=== PATIENT | female | born 1975 | race Two or more races ===

== ENCOUNTER 2020-02-06 08:48 | Outpatient (REF) | payer OTHER, SELFPAY ==
[2020-02-06 11:51] LABS: MANUAL DIFF FLAG NO
[2020-02-06 11:59] LABS: Basophils Percent Auto 0.4 % (0-2); Eosinophils Absolute Auto 0.1 X10*3/uL (0.0-0.4); Eosinophils Percent Auto 2.7 % (0-4); Hematocrit 39.3 % (37-47); Hemoglobin 12.2 g/dl (12.0-16.0); Imm Gran Abs Auto 0.01 X10*3/uL (0.00-0.03); Imm Gran Pct Auto 0.2 % (0.0-0.4); Lymphocytes Absolute Auto 1.2 X10*3/uL (1.2-4.9); Lymphocytes Percent Auto 22.7 % (20-40); Mean Corpuscular Hemoglobin 27.6 pg (27.0-33.0); Mean Corpuscular Volume 88.9 fL (80-98); Mean Platelet Volume 11.1 fL (9.4-12.3); Monocytes Absolute Auto 0.4 X10*3/uL (0.1-1.2); Monocytes Percent Auto 8.5 % (2-11); Neutrophils Absolute Auto 3.4 X10*3/uL (2.0-8.3); Neutrophils Percent Auto 65.5 % (45-73); Platelet Count 409 X10*3/uL (160-400); Red Blood Count 4.42 X10*6/uL (4.20-5.50); Red Cell Distribution Width 12.4 % (11.0-16.0); White Blood Count 5.2 X10*3/uL (4.8-10.8)
[2020-02-06 12:24] LABS: Anion Gap 10 (12-20); Blood Urea Nitrogen 13 mg/dL (9-16); Calcium 8.5 mg/dL (8.4-10.2); Carbon Dioxide 28 mmol/L (22-29); Chloride 105 mmol/L (96-108); Cholesterol 156 mg/dL; Estimated Glomerular Filt Rate > 60; Glucose Fasting 93 mg/dL (60-99); HDL Cholesterol 51 mg/dL; LDL Cholesterol Calculated 93 mg/dl; Potassium 4.4 mmol/l (3.3-5.1); Sodium 139 mmol/L (135-145); Triglycerides 61 mg/dL
[2020-02-06 12:48] LABS: TSH reflex Free T4 1.06 mIU/mL (0.32-4.0)
[2020-02-06 13:02] LABS: Vitamin B12 > 2000 pg/mL (200-900)
[2020-02-11 13:38] LABS: Vitamin D 25-OH, D2 <4 ng/mL; Vitamin D 25-OH, D3 40 ng/mL; Vitamin D 25-OH, Total 40 ng/mL (30-100)
== END 2020-02-06 08:49 | disposition home or self-care (01) ==
LOC: HO.HMGCLDS 08:48
PROVIDERS: PCP Internal Medicine; Visit Provider Internal Medicine
DX: Z00.01 Encounter for general adult medical examination with abnormal findings (principal); E53.8 Deficiency of other specified B group vitamins; E61.1 Iron deficiency; E55.9 Vitamin D deficiency, unspecified; E66.9 Obesity, unspecified
CPT/HCPCS: 36415; 80048; 80061; 82306; 82607; 84443; 85025

== ENCOUNTER 2020-10-02 09:16 | Outpatient (REF) | payer OTHER, SELFPAY ==
[2020-10-02 11:27] LABS: Anion Gap 9 (12-20); Carbon Dioxide 28 mmol/L (22-29); Chloride 106 mmol/L (96-108); Potassium 4.2 mmol/L (3.3-5.1); Sodium 139 mmol/L (135-145)
[2020-10-03 17:27] LABS: Rubella IgG Antibody 2.43 Index
[2020-10-04 21:02] LABS: TS Negative Control Passed; TS Panel A 0; TS Panel B 0; TS Positive Control Passed; TSpotTB Negative (SeeBelow)
[2020-10-05 13:47] LABS: Tetanus Antitoxiod Antibody 4.04 IU/mL
== END 2020-10-02 09:17 | disposition home or self-care (01) ==
LOC: HO.HMGCLDS 09:16
PROVIDERS: PCP Internal Medicine; Visit Provider Internal Medicine
DX: Z00.01 Encounter for general adult medical examination with abnormal findings (principal); Z11.1 Encounter for screening for respiratory tuberculosis; E53.8 Deficiency of other specified B group vitamins; E55.9 Vitamin D deficiency, unspecified; E61.1 Iron deficiency; E66.9 Obesity, unspecified; Z28.3 Underimmunization status
CPT/HCPCS: 36415; 80051; 86481; 86735; 86762; 86765; 86774; 86787

== ENCOUNTER 2021-02-14 07:44 | Outpatient (REF) | payer OTHER, SELFPAY ==
[2021-02-14 11:43] LABS: MANUAL DIFF FLAG NO
[2021-02-14 11:50] LABS: Basophils Percent Auto 0.3 % (0-2); Eosinophils Absolute Auto 0.2 X10*3/uL (0.0-0.4); Eosinophils Percent Auto 2.7 % (0-4); Hemoglobin 12.6 g/dl (12.0-16.0); Imm Gran Abs Auto 0.01 X10*3/uL (0.00-0.03); Imm Gran Pct Auto 0.2 % (0.0-0.4); Lymphocytes Absolute Auto 1.2 X10*3/uL (1.2-4.9); Lymphocytes Percent Auto 19.8 % (20-40); Mean Corpuscular HGB Conc 31.5 g/dl (31.0-35.0); Mean Corpuscular Volume 88.9 fL (80.0-98.0); Monocytes Absolute Auto 0.3 X10*3/uL (0.1-1.2); Monocytes Percent Auto 4.9 % (2-11); Neutrophils Absolute Auto 4.3 x10*3/uL (2.0-8.3); Neutrophils Percent Auto 72.1 % (45-73); Platelet Count 412 X10*3/uL (160-400); Red Cell Distribution Width 12.4 % (11.0-16.0); White Blood Count 5.9 X10*3/uL (4.8-10.8)
[2021-02-14 12:12] LABS: Alanine Aminotransferase < 6 U/L (0-31); Albumin Level 3.7 g/dL (3.5-5.0); Alkaline Phosphatase 53 U/L (39-117); Anion Gap 14 (12-20); Aspartate Amino Transferase 14 U/L (5-31); Bilirubin Total 0.5 mg/dL (0.0-1.0); Blood Urea Nitrogen 13 mg/dL (9-16); Carbon Dioxide 26 mmol/L (22-29); Chloride 106 mmol/L (96-108); Cholesterol 148 mg/dL; Estimated Glomerular Filt Rate > 60; Glucose Fasting 89 mg/dL (60-99); HDL Cholesterol 49 mg/dL; LDL Cholesterol Calculated 89 mg/dl; Potassium 4.7 mmol/L (3.3-5.1); Sodium 141 mmol/L (135-145); Total Protein 6.8 g/dL (6.5-8.0); Triglycerides 52 mg/dL
[2021-02-14 12:34] LABS: Ferritin 31 ng/mL (10-250); TSH reflex Free T4 0.95 uIU/mL (0.32-4.0)
[2021-02-14 13:01] LABS: Vitamin B12 680 pg/mL (200-900)
[2021-02-18 13:21] LABS: Vitamin D 25-OH, D2 <4 ng/mL; Vitamin D 25-OH, D3 24 ng/mL; Vitamin D 25-OH, Total 24 ng/mL (30-100)
== END 2021-02-14 07:45 | disposition home or self-care (01) ==
LOC: HO.HMGCLDS 07:44
PROVIDERS: PCP Internal Medicine; Visit Provider Internal Medicine
DX: Z00.01 Encounter for general adult medical examination with abnormal findings (principal); E53.8 Deficiency of other specified B group vitamins; E55.9 Vitamin D deficiency, unspecified; E61.1 Iron deficiency; E66.01 Morbid (severe) obesity due to excess calories
CPT/HCPCS: 36415; 80053; 80061; 82306; 82607; 82728; 84443; 85025

== ENCOUNTER 2021-03-28 14:38 | Outpatient (REF) | payer MEDICAID, SELFPAY ==
[2021-03-29 03:00] LABS: CT PCR NOT DETECTED (Not Detect.); NG PCR NOT DETECTED (Not Detect.)
[2021-03-29 09:48] LABS: BV Int Neg Control Negative (Negative); BV Int Pos Control Positive (Positive)
[2021-04-03 05:51] LABS: HPV mRNA E6/E7 rflx Not Detected (Not Detected)
== END 2021-03-28 14:39 | disposition home or self-care (01) ==
LOC: HO.LAB 14:38
PROVIDERS: PCP Internal Medicine; Visit Provider Advanced Practice Midwife
DX: Z01.419 Encounter for gynecological examination (general) (routine) without abnormal findings (principal); Z11.3 Encounter for screening for infections with a predominantly sexual mode of transmission; Z11.8 Encounter for screening for other infectious and parasitic diseases; Z11.51 Encounter for screening for human papillomavirus (HPV); E53.8 Deficiency of other specified B group vitamins; E55.9 Vitamin D deficiency, unspecified; D50.9 Iron deficiency anemia, unspecified; E66.01 Morbid (severe) obesity due to excess calories; Z68.41 Body mass index [BMI] 40.0-44.9, adult; Z91.040 Latex allergy status; Z98.51 Tubal ligation status; Z98.84 Bariatric surgery status; Z79.899 Other long term (current) drug therapy
CPT/HCPCS: 87480; 87491; 87510; 87591; 87624; 87660; 88142

== ENCOUNTER 2021-09-18 08:07 | Outpatient (REF) | payer OTHER, SELFPAY ==
--- NOTE | 2021-09-18 08:10 | EMG_ITS ---
Bilateral median and ulnar motor and sensory studies were performed. Bilateral radial and sensory studies were performed. Bilateral median and lateral antecubital brachial studies were performed and paraspinal muscles were tested with a needle. IMPRESSION: This study did not reveal any significant abnormality to suggest median or ulnar neuropathy, plexopathy, or radiculopathy. Study was unremarkable. MD DAVID Espinosa/IAN / [id number]
== END 2021-09-18 08:08 | disposition home or self-care (01) ==
LOC: HO.NEURO 08:07
PROVIDERS: Visit Provider Internal Medicine
DX: R20.2 Paresthesia of skin (principal)
CPT/HCPCS: 95886; 95913

== ENCOUNTER 2022-01-21 09:03 | Outpatient (REF) | payer OTHER, SELFPAY ==
[2022-01-22 10:13] LABS: BV Int Neg Control Negative (Negative); BV Int Pos Control Positive (Positive)
== END 2022-01-21 09:04 | disposition home or self-care (01) ==
LOC: HO.LAB 09:03
PROVIDERS: Visit Provider Internal Medicine
DX: N76.0 Acute vaginitis (principal); R30.0 Dysuria
CPT/HCPCS: 87086; 87480; 87510; 87660

== ENCOUNTER 2022-01-21 09:08 | Outpatient (REF) | payer OTHER, SELFPAY ==
[2022-01-21 11:11] LABS: MANUAL DIFF FLAG NO
[2022-01-21 11:37] LABS: Basophils Percent Auto 0.3 % (0-2); Eosinophils Absolute Auto 0.1 X10*3/uL (0.0-0.4); Eosinophils Percent Auto 1.6 % (0-4); Hemoglobin 12.1 g/dl (12.0-16.0); Imm Gran Abs Auto 0.01 X10*3/uL (0.00-0.03); Imm Gran Pct Auto 0.2 % (0.0-0.4); Lymphocytes Percent Auto 17.7 % (20-40); Mean Corpuscular Hemoglobin 26.3 pg (27.0-33.0); Mean Corpuscular Volume 84.8 fL (80.0-98.0); Mean Platelet Volume 11.3 fL (9.4-12.3); Monocytes Absolute Auto 0.4 X10*3/uL (0.1-1.2); Monocytes Percent Auto 7.6 % (2-11); Neutrophils Absolute Auto 4.2 x10*3/uL (2.0-8.3); Neutrophils Percent Auto 72.6 % (45-73); Platelet Count 420 X10*3/uL (160-400); Red Cell Distribution Width 12.7 % (11.0-16.0); White Blood Count 5.8 X10*3/uL (4.8-10.8)
[2022-01-21 11:51] LABS: Estimated Average Glucose 120 mg/dL; Hemoglobin A1c % 5.8 %
[2022-01-21 12:01] LABS: Alanine Aminotransferase 6 U/L (0-31); Albumin Level 3.8 g/dL (3.5-5.0); Alkaline Phosphatase 60 U/L (39-117); Anion Gap 11 (12-20); Aspartate Amino Transferase 15 U/L (5-31); Bilirubin Total 0.4 mg/dL (0.0-1.0); Blood Urea Nitrogen 10 mg/dL (9-16); Carbon Dioxide 26 mmol/L (22-29); Chloride 105 mmol/L (96-108); Cholesterol 164 mg/dL; Estimated Glomerular Filt Rate > 60; Glucose Fasting 102 mg/dL (60-99); HDL Cholesterol 54 mg/dL; LDL Cholesterol Calculated 97 mg/dl; Potassium 4.4 mmol/L (3.3-5.1); Sodium 138 mmol/L (135-145); Triglycerides 65 mg/dL
== END 2022-01-21 09:09 | disposition home or self-care (01) ==
LOC: HO.HMGCLDS 09:08
PROVIDERS: PCP Internal Medicine; Visit Provider Internal Medicine
DX: E53.8 Deficiency of other specified B group vitamins (principal); E55.9 Vitamin D deficiency, unspecified; E61.1 Iron deficiency; E66.01 Morbid (severe) obesity due to excess calories; R20.2 Paresthesia of skin; R63.1 Polydipsia
CPT/HCPCS: 36415; 80053; 80061; 83036; 84443; 85025

== ENCOUNTER 2022-02-06 09:45 | Outpatient (REF) | payer OTHER, SELFPAY ==
[2022-02-08 19:03] LABS: TS Negative Control Passed; TS Panel A 0; TS Panel B 0; TS Positive Control Passed; TSpotTB Negative (Negative)
== END 2022-02-06 09:46 | disposition home or self-care (01) ==
LOC: HO.HMGCLDS 09:45
PROVIDERS: PCP Internal Medicine; Visit Provider Internal Medicine
DX: Z11.1 Encounter for screening for respiratory tuberculosis (principal)
CPT/HCPCS: 36415; 86481

== ENCOUNTER 2022-04-03 14:42 | Outpatient (REF) | payer OTHER, SELFPAY ==
--- NOTE | ~2022-04-03 | XR_ITS ---
EXAMINATION: XR LUMBOSACRAL SPINE CLINICAL INFORMATION: Lower back pain COMPARISON: 09/23/2018 TECHNIQUE: Three views of the lumbosacral spine. FINDINGS: No fracture or subluxation. Vertebral body height and alignment maintained. Mild disc space narrowing of L4-L5. Mild facet arthropathy at the lower lumbar spine. The appearance has progressed from 2019. The sacroiliac joints are symmetric. The visualized sacrum is intact. Normal bowel gas pattern. XR/XR lumbar spine 2-3V IMPRESSION: Mild degenerative changes of the lower lumbar spine which have progressed from 2019.
== END 2022-04-03 14:43 | disposition home or self-care (01) ==
LOC: HO.HMGCX 14:42
PROVIDERS: Visit Provider Internal Medicine
DX: M54.50 Low back pain, unspecified (principal)
CPT/HCPCS: 72100

== ENCOUNTER 2022-04-30 11:31 | Outpatient (REF) | payer OTHER, SELFPAY ==
[2022-04-30 16:57] LABS: CT PCR NOT DETECTED (Not Detect.); NG PCR NOT DETECTED (Not Detect.)
[2022-05-01 11:11] LABS: BV Int Neg Control Negative (Negative); BV Int Pos Control Positive (Positive)
== END 2022-04-30 11:32 | disposition home or self-care (01) ==
LOC: HO.LAB 11:31
PROVIDERS: PCP Internal Medicine; Visit Provider Advanced Practice Midwife
DX: Z11.3 Encounter for screening for infections with a predominantly sexual mode of transmission (principal); N89.8 Other specified noninflammatory disorders of vagina; E66.01 Morbid (severe) obesity due to excess calories; Z20.2 Contact with and (suspected) exposure to infections with a predominantly sexual mode of transmission; N94.9 Unspecified condition associated with female genital organs and menstrual cycle
CPT/HCPCS: 0353U; 87480; 87510; 87660

== ENCOUNTER 2022-04-30 12:25 | Outpatient (REF) | payer OTHER, SELFPAY | END 2022-04-30 12:26 | disposition home or self-care (01) | LOC: HO.LNP 12:25 | PROVIDERS: Visit Provider Advanced Practice Midwife | DX: Z13.89 Encounter for screening for other disorder (principal) ==

== ENCOUNTER 2022-10-02 13:47 | Outpatient (AMB) | payer OTHER, SELFPAY ==
--- NOTE | 2022-10-02 13:50 | MHC.PC.OV ---
Vital Signs 10/02/22 13:52 Height 5 ft Weight 208 lb BMI 40.6 BP 120/68 Blood Pressure Location Lt brachial Position Sitting Pulse 80 Pulse Source Pulse Oximeter Pulse Oximetry (%) 98 Intake Visit Reasons: 6m f/u Explosive Operator Bomb Required: No Accompanied by: Self / Same As Patient Allergies latex [LATEX] Allergy (Unknown, Verified 10/02/22 13:50) skin breakdown Medication List - Last Reconciled 10/02/22 by Leo Ray MD No Known Home Meds Tobacco use date assessed: 04/03/22 Dental Screening Dental Screen Date: 10/02/22 Did you have a dental visit in the last 12 months?: Yes Did you have a dental problem in the last 6 months where you did not have access to dental care?: No Was dental information given to patient?: Patient has dentist HPI 6m f/u HPI Details Patient is 46-year-old female with into each few days ago and after that her eczema got worse She also have rash around neck patient says that itching was unbearable so she went to emergency room and was given prednisone tapering starting with 40 mg While she was taking it she felt ill bit better and now the rash has flared up again. Patient does have a history of eczema she has been using [id number] hydrocortisone cream which is not helping She is requesting a referral to Dermatology as well as treatment while she wait to see them And labs Dermatology referral placed I have sent prednisone 10 mg once a day for 5 days Clobetasol cream to be used locally [facility] Medical History B12 deficiency Iron deficiency Lumbar radiculitis Migraine headache Obesity Vitamin D deficiency Surgical History History of gastric bypass History of tonsillectomy History of tubal ligation Status post breast reduction Family History Father No problems noted. Mother HTN (hypertension) Arthritis Prediabetes Substance use disorder Maternal Grandmother Heart problem Lymphoma Arthritis Unknown family medical history Breast cancer Paternal Grandmother Diabetes mellitus Heart problem Unknown family medical history Paternal Grandfather Diabetes mellitus Heart problem Maternal Grandfather Unknown family medical history Sister No problems noted. Sister No problems noted. Daughter No problems noted. Brother No problems noted. Brother No problems noted. Brother No problems noted. Brother No problems noted. Social History Housing: House Alcohol intake: never Patient Tobacco Use Status: Never used Tobacco e-Cigarette/Vaping Use: Never Used service: No Current occupational status: employed Cognitive needs: No Hearing needs: No Vision needs: Yes Female Reproductive History Menstrual Age of Menarche: 14 Questionnaire PHQ-9 Over the last 2 weeks, how often have you been bothered by any of the following problems? 1. Little interest or pleasure in doing things: not at all 2. Feeling down, depressed, or hopeless: not at all 3. Trouble falling or staying asleep, or sleeping too much: not at all 4. Feeling tired or having little energy: several days 5. Poor appetite or overeating: not at all 6. Feeling bad about yourself - or that you are a failure or have let yourself or your family down: not at all 7. Trouble concentrating on things, such as reading the newspaper or watching television: several days 8. Moving or speaking so slowly that other people could have noticed. Or the opposite - being so fidgety or restless that you have been moving around a lot more than usual: not at all 9. Thoughts that you would be better off or of hurting yourself in some way: not at all Total score: 2 Depression Screening Interpretation: Negative 25749 - PHQ-9 Billing: Yes Source: Developed by Drs. Fahad Beaulieu, Armen Mares and colleagues, with an educational klarissa from [employer]. Thrive Questionnaire Date Thrive assessed: 01/21/22 MUSHTAQ-7 AMB Questionnaire MUSHTAQ-7 Date MUSHTAQ - 7 assessed: 01/21/22 Source: Developed by Drs. Fahad Beaulieu, Armen Mares and colleagues, with an educational klarissa from [employer]. Review of Systems Const All systems reviewed & are unremarkable except as noted in HPI and below Physical exam (Primary Care) Vital Signs: Last Vital Signs Pulse 80 10/02/22 13:52 BP 120/68 10/02/22 13:52 Pulse Ox 98 10/02/22 13:52 BMI result Body Mass Index 40.6 Tobacco/Smoking Status: Tobacco use Status Tobacco use date assessed 04/03/22 10/02/22 13:56 Patient Tobacco Use Status Never used Tobacco 10/02/22 13:56 e-Cigarette/Vaping Use Never Used 10/02/22 13:56 PHQ-9: PHQ-9 Score PHQ-9: Total score 2 10/02/22 13:58 Depression Screening Interpretation: Negative Thrive Assessment: Date of Thrive Assessment Date Thrive assessed 01/21/22 10/02/22 13:56 Const General: no acute distress Orientation/consciousness: patient oriented x3 Eyes General: appearance normal, both eyes and all related structures Resp Effort & Inspection: normal respiratory effort and able to speak in complete sentences Auscultation: clear to auscultation bilaterally Skin Full body images: 1. Inflamed rash 2. Eczematous rash with scratch jones Neuro General: patient oriented x3 Psych Mental Status: mental status grossly normal Assessment and Plan Assessment & Plan (1) Pruritic rash: Code(s): L28.2 - Other prurigo (2) Obesity, morbid, BMI 40.0-49.9: Code(s): E66.01 - Morbid (severe) obesity due to excess calories (3) Eczema: Code(s): L30.9 - Dermatitis, unspecified Plan Patient is 46-year-old female with into each few days ago and after that her eczema got worse She also have rash around neck patient says that itching was unbearable so she went to emergency room and was given prednisone tapering starting with 40 mg While she was taking it she felt ill bit better and now the rash has flared up again. Patient does have a history of eczema she has been using [id number] hydrocortisone cream which is not helping She is requesting a referral to Dermatology as well as treatment while she wait to see them And labs Dermatology referral placed I have sent prednisone 10 mg once a day for 5 days Clobetasol cream to be used locally Orders: Orders Complete Blood Count Auto Diff Today E66.01 - Morbid (severe) obesity due to excess calories, L28.2 - Other prurigo Comprehensive Met. Panel Today E66.01 - Morbid (severe) obesity due to excess calories, L28.2 - Other prurigo TSH reflex Free T4 Today E66.01 - Morbid (severe) obesity due to excess calories, L28.2 - Other prurigo Vitamin D 25-OH (D2 and D3) Today E66.01 - Morbid (severe) obesity due to excess calories, L28.2 - Other prurigo Vitamin B12 Today E66.01 - Morbid (severe) obesity due to excess calories, L28.2 - Other prurigo Magnesium Today E66.01 - Morbid (severe) obesity due to excess calories, L28.2 - Other prurigo Referrals Dermatology Referral L30.9 - Dermatitis, unspecified Medications: New prednisone 10 mg PO DAILY 5 days PRN 5 tabs 0RF Eczema clobetasol 0.05% 1 appl topical BID 2 weeks 60 grams 0RF Eczema Coding Level of Care Code Est Pt Level 4 (95937) Diagnoses Pruritic rash L28.2 Obesity, morbid, BMI 40.0-49.9 E66.01 Eczema L30.9
[2022-10-02 13:52] VITALS: BP 120/68; PULSE 80; O2SAT 98; BMI 40.6
== END 2022-10-02 15:22 | disposition home or self-care (01) ==
PROVIDERS: Visit Provider Internal Medicine
DX: L28.2 Other prurigo (principal); E66.01 Morbid (severe) obesity due to excess calories; L30.9 Dermatitis, unspecified; Z68.41 Body mass index [BMI] 40.0-44.9, adult
CPT/HCPCS: 99214

== ENCOUNTER 2022-10-02 14:07 | Outpatient (REF) | payer OTHER, SELFPAY ==
[2022-10-02 16:14] LABS: MANUAL DIFF FLAG NO
[2022-10-02 16:37] LABS: Basophils Percent Auto 0.4 % (0-2); Eosinophils Absolute Auto 0.1 X10*3/uL (0.0-0.4); Hematocrit 31.9 % (37.0-47.0); Hemoglobin 9.4 g/dl (12.0-16.0); Imm Gran Abs Auto 0.05 X10*3/uL (0.00-0.03); Imm Gran Pct Auto 0.5 % (0.0-0.4); Lymphocytes Absolute Auto 1.8 X10*3/uL (1.2-4.9); Lymphocytes Percent Auto 18.6 % (20-40); Mean Corpuscular HGB Conc 29.5 g/dl (31.0-35.0); Mean Corpuscular Hemoglobin 22.7 pg (27.0-33.0); Mean Corpuscular Volume 76.9 fL (80.0-98.0); Mean Platelet Volume 11.3 fL (9.4-12.3); Monocytes Absolute Auto 0.6 X10*3/uL (0.1-1.2); Monocytes Percent Auto 6.4 % (2-11); Neutrophils Percent Auto 73.1 % (45-73); Platelet Count 487 X10*3/uL (160-400); Red Blood Count 4.15 X10*6/uL (4.20-5.50); Red Cell Distribution Width 14.6 % (11.0-16.0); White Blood Count 9.6 X10*3/uL (4.8-10.8)
[2022-10-02 17:02] LABS: Alanine Aminotransferase 7 U/L (0-31); Albumin Level 3.4 g/dL (3.5-5.0); Alkaline Phosphatase 53 U/L (39-117); Anion Gap 17 (12-20); Aspartate Amino Transferase 13 U/L (5-31); Bilirubin Total 0.3 mg/dL (0.0-1.0); Blood Urea Nitrogen 13 mg/dL (9-16); Calcium 8.7 mg/dL (8.4-10.2); Carbon Dioxide 21 mmol/L (22-29); Chloride 103 mmol/L (96-108); Estimated Glomerular Filt Rate > 60; Glucose Random 81 mg/dL (60-115); Potassium 3.7 mmol/L (3.3-5.1); Sodium 137 mmol/L (135-145); Total Protein 6.8 g/dL (6.5-8.0)
[2022-10-02 17:19] LABS: TSH reflex Free T4 1.15 uIU/mL (0.32-4.0)
[2022-10-02 17:25] LABS: Vitamin B12 328 pg/mL (200-900)
[2022-10-07 15:03] LABS: Vitamin D 25-OH, D2 <4 ng/mL; Vitamin D 25-OH, D3 18 ng/mL; Vitamin D 25-OH, Total 18 ng/mL (30-100)
== END 2022-10-02 14:08 | disposition home or self-care (01) ==
LOC: HO.HMGCLDS 14:07
PROVIDERS: PCP Internal Medicine; Visit Provider Internal Medicine
DX: E66.01 Morbid (severe) obesity due to excess calories (principal); L28.2 Other prurigo
CPT/HCPCS: 36415; 80053; 82306; 82607; 83735; 84443; 85025

== ENCOUNTER 2022-10-06 10:00 | Outpatient (AMB) | payer OTHER, SELFPAY ==
[2022-10-06 10:02] VITALS: BP 124/72; PULSE 75; O2SAT 100; BMI 40.3
--- NOTE | 2022-10-06 10:02 | MHC.PC.OV ---
Vital Signs 10/06/22 10:02 Height 5 ft Weight 206 lb 8 oz BMI 40.3 BP 124/72 Blood Pressure Location Rt brachial Position Sitting Pulse 75 Pulse Source Pulse Oximeter Pulse Oximetry (%) 100 Oxygen Delivery Method Room Air Intake Visit Reasons: Follow Up Appt ~ Allergies latex [LATEX] Allergy (Unknown, Verified 10/06/22 10:02) skin breakdown Medication List - Last Reconciled 10/06/22 by Leo Ray MD clobetasol 0.05% 1 appl topical BID 2 weeks prednisone 10 mg PO DAILY PRN 5 days Tobacco use date assessed: 10/06/22 Dental Screening Dental Screen Date: 10/06/22 Did you have a dental visit in the last 12 months?: Yes Did you have a dental problem in the last 6 months where you did not have access to dental care?: No Was dental information given to patient?: No HPI Follow Up Appt ~ HPI Details Patient is a 46-year-old female came in today for an acute problem Patient had labs done her hemoglobin came back at 9.4 patient have a history of dysfunctional uterine bleeding she is seeing an OBGYN Patient says that she have a history of iron deficiency anemia before as well she was taking iron supplement that corrected her hemoglobin Last time she had hemoglobin check was January of last year and it was 12.1. She will restart the iron 2 or 3 times a day and repeat labs again in 3 months. She was seen for a rash few days ago and I prescribed clobetasol cream rash has resolved however patient have a history of eczema and she is waiting for Dermatology appointment. [facility] Medical History B12 deficiency Iron deficiency Lumbar radiculitis Migraine headache Obesity Vitamin D deficiency Surgical History History of gastric bypass History of tonsillectomy History of tubal ligation Status post breast reduction Family History Father No problems noted. Mother HTN (hypertension) Arthritis Prediabetes Substance use disorder Maternal Grandmother Heart problem Lymphoma Arthritis Unknown family medical history Breast cancer Paternal Grandmother Diabetes mellitus Heart problem Unknown family medical history Paternal Grandfather Diabetes mellitus Heart problem Maternal Grandfather Unknown family medical history Sister No problems noted. Sister No problems noted. Daughter No problems noted. Brother No problems noted. Brother No problems noted. Brother No problems noted. Brother No problems noted. Social History Housing: House Alcohol intake: never Patient Tobacco Use Status: Never used Tobacco e-Cigarette/Vaping Use: Never Used service: No Current occupational status: employed Cognitive needs: No Hearing needs: No Vision needs: Yes Female Reproductive History Menstrual Age of Menarche: 14 Questionnaire Thrive Questionnaire Date Thrive assessed: 01/21/22 AUDIT C Alcohol Use Questionnaire (AUDIT-C) 1. How often do you have a drink containing alcohol?: Never 3. How often do you have six or more drinks on one occasion?: Never Total Score: 0 Score Reviewed/Action Taken: Yes MUSHTAQ-7 AMB Questionnaire MUSHTAQ-7 Date MUSHTAQ - 7 assessed: 01/21/22 Source: Developed by Drs. Fahad Beaulieu, Tawanna Talavera, Armen Javier and colleagues, with an educational klarissa from [employer]. Review of Systems Const Denies chills and Denies fever(s) ENT Denies epistaxis and Denies nasal discharge Card Denies chest pain Resp Denies chest congestion, Denies cough and Denies hemoptysis GI Denies diarrhea and Denies nausea Skin/Breast Denies rash Neuro Reports no additional complaints Psych Reports no additional complaints Endo Reports no additional complaints Physical exam (Primary Care) Vital Signs: Last Vital Signs Pulse 75 10/06/22 10:02 BP 124/72 10/06/22 10:02 Pulse Ox 100 10/06/22 10:02 Oxygen Delivery Method Room Air 10/06/22 10:02 BMI result Body Mass Index 40.3 Tobacco/Smoking Status: Tobacco use Status Tobacco use date assessed 10/06/22 10/06/22 10:04 Patient Tobacco Use Status Never used Tobacco 10/06/22 10:04 e-Cigarette/Vaping Use Never Used 10/06/22 10:04 Thrive Assessment: Date of Thrive Assessment Date Thrive assessed 01/21/22 10/06/22 10:04 Const General: cooperative, comfortable and no acute distress Orientation/consciousness: patient oriented x3 HENMT Head: Yes normocephalic Eyes General: appearance normal, both eyes and all related structures Neck Neck: Yes supple Resp Effort & Inspection: normal respiratory effort, no cough and no stridor Cardio Rhythm: regular rhythm Heart sounds: S1 normal heart sound present and S2 normal heart sound present Skin General skin exam: turgor normal Neuro General: patient oriented x3, tone normal and moves all extremities Extrem Right lower extremity: no edema Left lower extremity: no edema Assessment and Plan Assessment & Plan (1) Iron deficiency anemia: Code(s): D50.9 - Iron deficiency anemia, unspecified Plan Patient is a 46-year-old female came in today for an acute problem Patient had labs done her hemoglobin came back at 9.4 patient have a history of dysfunctional uterine bleeding she is seeing an OBGYN Patient says that she have a history of iron deficiency anemia before as well she was taking iron supplement that corrected her hemoglobin Last time she had hemoglobin check was January of last year and it was 12.1. She will restart the iron 2 or 3 times a day and repeat labs again in 3 months. She was seen for a rash few days ago and I prescribed clobetasol cream rash has resolved however patient have a history of eczema and she is waiting for Dermatology appointment. Orders: Orders Ferritin 3 Months D50.9 - Iron deficiency anemia, unspecified IRON PROFILE 3 Months D50.9 - Iron deficiency anemia, unspecified Complete Blood Count Auto Diff 3 Months D50.9 - Iron deficiency anemia, unspecified Coding Level of Care Code Est Pt Level 3 (87926) Diagnoses Iron deficiency anemia D50.9
== END 2022-10-06 11:48 | disposition home or self-care (01) ==
PROVIDERS: PCP Internal Medicine; Visit Provider Internal Medicine
DX: D50.9 Iron deficiency anemia, unspecified (principal)
CPT/HCPCS: 99213

== ENCOUNTER 2022-10-12 09:48 | Outpatient (AMB) | payer OTHER, SELFPAY ==
[2022-10-12 10:17] VITALS: BP 120/76; PULSE 78; TEMP 36.8; O2SAT 97
--- NOTE | 2022-10-12 10:17 | AM.OFFWIN_ITS ---
Intake Vital Signs 10/12/22 10:17 Height 5 ft BP 120/76 Blood Pressure Location Lt brachial Position Sitting Pulse 78 Pulse Source Pulse Oximeter Temp 98.3 F Temp Source Oral Pulse Oximetry (%) 97 Oxygen Delivery Method Room Air Intake Visit Reasons: EP swollen face (lobby) Intake Note: Pt is here today for swollen face, Lt eye swollen, , pt states started yesterday after beach. Patient Tobacco Use Status: Never used Tobacco Allergies latex [LATEX] Allergy (Unknown, Verified 10/12/22 10:18) skin breakdown HPI EP swollen face (lobby) HPI Details Patient presents with diffuse swelling after a day at the beach yesterday. She notes now that his left is mild swelling over the left upper face and eyelid. She does note recently being on prednisone for several weeks for generalized swelling thought to be may be related to her lupus. I have reviewed her chart I do not see this as a diagnosis however she does report she was on Plaquenil for 1-2 years but has not received any treatment over the past 3 or 4 years. She did have follow-up with her PCP which she did not request referral to Rheumatology. She is now thinking she should see unit manager rn again. She notes the sun as 1 of the triggers for these episodes of urticaria. She does have some skin changes on her left dorsal forearm which she is treating with clobetasol. She denies chest pain, shortness of breath, difficulty breathing or swallowing or changes to the tongue lips or mouth. [facility] Medical History B12 deficiency Iron deficiency Lumbar radiculitis Migraine headache Obesity Vitamin D deficiency Surgical History History of gastric bypass History of tonsillectomy History of tubal ligation Status post breast reduction Family History Father No problems noted. Mother HTN (hypertension) Arthritis Prediabetes Substance use disorder Maternal Grandmother Heart problem Lymphoma Arthritis Unknown family medical history Breast cancer Paternal Grandmother Diabetes mellitus Heart problem Unknown family medical history Paternal Grandfather Diabetes mellitus Heart problem Maternal Grandfather Unknown family medical history Sister No problems noted. Sister No problems noted. Daughter No problems noted. Brother No problems noted. Brother No problems noted. Brother No problems noted. Brother No problems noted. Social History Housing: House Alcohol intake: never Patient Tobacco Use Status: Never used Tobacco e-Cigarette/Vaping Use: Never Used service: No Current occupational status: employed Cognitive needs: No Hearing needs: No Vision needs: Yes Female Reproductive History Menstrual Age of Menarche: 14 Review of Systems Const Reports as per HPI and Reports no additional complaints ENT Reports no additional complaints and Reports as per HPI Card Reports as per HPI and Reports no additional complaints Resp Reports as per HPI and Reports no additional complaints Skin/Breast Denies lesions Neuro Reports no additional complaints and Reports as per HPI Physical Exam Vital Signs: Last Vital Signs Temp 98.3 F 10/12/22 10:17 Pulse 78 10/12/22 10:17 BP 120/76 10/12/22 10:17 Pulse Ox 97 10/12/22 10:17 Oxygen Delivery Method Room Air 10/12/22 10:17 Const General: cooperative, comfortable and no acute distress Orientation/consciousness: patient oriented x3 Resp Effort & Inspection: normal respiratory effort Auscultation: clear to auscultation bilaterally Cardio Rate: regular rate Rhythm: regular rhythm Heart sounds: S1 normal heart sound present and S2 normal heart sound present Skin Other: Mild erythema and edema about the left holiness an eyelid. Mild urticaria over the right radial forearm2. Dark dry lesion 10 cm x 5 cm over the left forearm. General skin exam: turgor normal Neuro General: patient oriented x3 Assessment & Plan Assessment & Plan (1) History of systemic lupus erythematosus (SLE): Code(s): M32.9 - Systemic lupus erythematosus, unspecified (2) Pruritic rash: Code(s): L28.2 - Other prurigo Plan Will place rheumatology referral for patient. This rash may be a lot more allergic in nature or related to sun exposure. Will extend her course of prednisone and other week as this seemed to help. Advised to avoid the sun. Follow up with PCP or here as needed. Orders: Referrals Rheumatology Referral M32.9 - Systemic lupus erythematosus, unspecified Medications: New prednisone 2 tabs daily x 4 days, then 1 tab daily days 5-8 20 mg PO DAILY 12 tabs 0RF 8 days Coding Level of Care Code Est Pt Level 3 (50947) Diagnoses History of systemic lupus erythematosus (SLE) M32.9 Pruritic rash L28.2
== END 2022-10-12 11:18 | disposition home or self-care (01) ==
PROVIDERS: PCP Internal Medicine; Visit Provider Physician Assistant
DX: M32.9 Systemic lupus erythematosus, unspecified (principal); L28.2 Other prurigo
CPT/HCPCS: 99213

== ENCOUNTER 2023-11-03 10:36 | Outpatient (AMB) | payer OTHER, SELFPAY ==
[2023-11-03 10:54] VITALS: BP 122/70; BMI 42.2
--- NOTE | 2023-11-03 10:54 | MHC.OFFVIS ---
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 She works generally evening shift but she just worked a double last night because they were short so she is tired she is aware of when she works those long hours overnight it really disrupts her sleep and eating. She had lost down to 190 in August and between the of her mother in the winter and her grandfather she has been eating more and put lot of weight back on she knows she needs to lose it. She also knows how hard she worked to use it in the past she had had gastric bypass surgery in the past as well she says she has lupus but she manages at and does not want to take the medication because of the effects she takes her vitamins and that is all. She has her appointment with her primary coming up and she knows weight we will come up. She had her mammogram recently. [facility] Medical History Lumbar radiculitis Migraine headache B12 deficiency Iron deficiency Vitamin D deficiency Obesity Surgical History (Updated 11/03/23 @ 11:42 by Audrey Bautista CNM) Status post breast reduction History of gastric bypass History of tubal ligation History of tonsillectomy Family History Father No problems noted. Mother HTN (hypertension) Arthritis Prediabetes Substance use disorder Maternal Grandmother Heart problem Lymphoma Arthritis Unknown family medical history Breast cancer Paternal Grandmother Diabetes mellitus Heart problem Unknown family medical history Paternal Grandfather Diabetes mellitus Heart problem Maternal Grandfather Unknown family medical history Sister No problems noted. Sister No problems noted. Daughter No problems noted. Brother No problems noted. Brother No problems noted. Brother No problems noted. Brother No problems noted. Social History (Reviewed 11/03/23 @ 10:55 by Natalia Allen [facility]) Housing: House Alcohol intake: never Patient Tobacco Use Status: Never used Tobacco e-Cigarette/Vaping Use: Never Used service: No Current occupational status: employed Cognitive needs: No Hearing needs: No Vision needs: Yes Female Reproductive History Menstrual Age of Menarche: 14 Duration of menses: 3-5 days Date of last menstrual period: 10/17/23 control method: permanent sterilization Total pregnancies: 1 Full term: 1 Date of last pap smear: 03/28/21 (negative,2017,previous pap neg) History of abnormal pap smear: No Date of Mammogram: 10/26/23 (negative) Physical Exam Vital Signs: Last Vital Signs BP 122/70 11/03/23 10:54 BMI result Body Mass Index 42.2 Const General: healthy appearing, comfortable, no acute distress, well developed and alert Nutritional Appearance: average body habitus Orientation/consciousness: patient oriented x3 Limitations: no limitations HEENT Head: Yes normocephalic Neck Neck: Yes normal visual inspection Chest Chest palpation & inspection: normal inspection of the chest Breast/axilla inspection: normal inspection of the breasts and normal inspection of the axillae Breast/axilla palpation: normal palpation of the breasts and normal palpation of the axillae Resp Effort & Inspection: normal respiratory effort GI Inspection: Yes normal to inspection, No Abdominal wall edema and No distended Palpation (GI): Soft to palpation and nontender Other: External exam within limits vagina pink and moist healthy appearing scant to no discharge cervix pink mobile healthy-appearing long close thick mobile nontender uterus anteverted mobile nontender adnexa nontender, good tone with Kegel. General: Yes bladder normal to palpation External Female Exam: normal external appearance and normal appearance of the urethra Speculum Exam - Vagina: normal appearance of the vagina, normal palpation and normal vaginal discharge Speculum Exam - Cervix: normal appearance of the cervix, normal palpation and nontender Bimanual exam- vagina & uterus: normal bimanual exam, normal palpation, uterine size normal, bladder normal to palpation, consistency normal, normal palpation, uterine mobility normal, uterine shape normal, No Cervical tenderness present, non-tender and no cervical motion tenderness Bimanual Exam- Adnexa, other: normal adnexae, no masses, normal and No adnexal tenderness Neuro General: patient oriented x3 Results Reviewed Results Reviewed: me: Lauren Jeffery Age/Sex: 45/F Attending: Audrey Bautista CNM : 1975 Submitted by: Audrey Bautista CNM Copies to: Leo Ray MD MR #: [id number] Status: DEP REF Collected: 03/28/21 Location: .LAB Received: 03/31/21 Interpretation Satisfactory for evaluation. Negative for intraepithelial lesion or malignancy. HPV mRNA E6/E7: NOT DETECTED This assay detects E6/E7 viral messenger RNA (mRNA) from 14 high-risk HPV types (16, 18, 31, 33, 35, 39, 45, 51, 52, 56, 58, 59, 66, 68) HPV testing performed by [facility], [place], [place]. See reference laboratory portion of the EMR for entire report. Clinical Information LMP: 03/17/21 Previous PAP test: 2017, Unknown Material Received ThinPrep- Cervical Copies To Leo Ray MD [address] [facility] [address] [place] [id number] Audrey Bautista CNM [address] [place] [address] [place] [address] Electronically Signed By: Kristine Watson 04/07/21 9221 The Pap Test is a screening procedure with the inherent possibility of both false negative and false positive results. Results should be interpreted in the context of historic and current clinical findings. Reliability of the Pap Test is enhanced by performing the test on a regular repetitive basis. Patient: Lauren Jeffery Age/Sex: 45/F MR#: [id number] Page 1 of 1 Assessment & Plan Assessment & Plan (1) Potential exposure to STD: Code(s): Z20.2 - Contact with and (suspected) exposure to infections with a predominantly sexual mode of transmission Category: Medical (2) Cervical cancer screening: Comment: pap 03/28= neg w neg hpv Code(s): Z12.4 - Encounter for screening for malignant neoplasm of cervix Category: Medical (3) Well woman exam with routine gynecological exam: Code(s): Z01.419 - Encounter for gynecological examination (general) (routine) without abnormal findings Category: Medical (4) Obesity, morbid, BMI 40.0-49.9: Code(s): E66.01 - Morbid (severe) obesity due to excess calories Category: Medical Plan -----Discussed in this visit the following: healthy balanced diet, regular and consistent exercise, getting recommended health screens, doing the best she can for her particular health concerns, kegel exercises, pap smear screening and followup recommendations, mammography screening and SBE, normal changes in cycles in her life stage--- . Discussed the challenges of weight gain and grief and the lifelong challenge of weight loss and all her efforts. Suggest giving herself a little george time and then revisiting her efforts and determination to use the weight again she knows she will be discussing it with her primary care provider she knows that she is able to do it in the past and we reviewed all she had done with her eating patterns in the past that led her to lose the weight in a healthy way with protein at meals and avoiding sugar and Flattening foods and bread and pasta. RTC 1 year. She is up-to-date on her mammogram. Coding Level of Care Code Est Pt Prev Care 40-64y(27972) Diagnoses Potential exposure to STD Z20.2 Cervical cancer screening Z12.4 Well woman exam with routine gynecological exam Z01.419 Obesity, morbid, BMI 40.0-49.9 E66.01
== END 2023-11-03 11:56 | disposition home or self-care (01) ==
PROVIDERS: PCP Internal Medicine; Visit Provider Advanced Practice Midwife
DX: Z01.419 Encounter for gynecological examination (general) (routine) without abnormal findings (principal); Z20.2 Contact with and (suspected) exposure to infections with a predominantly sexual mode of transmission; Z12.4 Encounter for screening for malignant neoplasm of cervix; E66.01 Morbid (severe) obesity due to excess calories
CPT/HCPCS: 99396

== ENCOUNTER 2023-11-03 10:36 | Outpatient (REF) | payer OTHER, SELFPAY ==
[2023-11-04 05:55] LABS: CT PCR NOT DETECTED (Not Detect.); NG PCR NOT DETECTED (Not Detect.)
[2023-11-04 11:07] LABS: Bacterial Vaginosis PCR POSITIVE (Negative); Candida Group PCR NOT DETECTED (Not Detect); Candida glab krusei PCR NOT DETECTED (Not Detect); Trichomonas vaginalis PCR NOT DETECTED (Not Detect)
== END 2023-11-03 10:37 | disposition home or self-care (01) ==
LOC: HO.LAB 10:36
PROVIDERS: PCP Internal Medicine; Visit Provider Advanced Practice Midwife
DX: Z01.419 Encounter for gynecological examination (general) (routine) without abnormal findings (principal); N89.8 Other specified noninflammatory disorders of vagina; E66.01 Morbid (severe) obesity due to excess calories; Z20.2 Contact with and (suspected) exposure to infections with a predominantly sexual mode of transmission
CPT/HCPCS: 0352U; 87491; 87591; 99396

== ENCOUNTER 2023-11-19 09:42 | Outpatient (AMB) | payer OTHER, SELFPAY ==
[2023-11-19 09:44] VITALS: BP 126/74; PULSE 68; O2SAT 98; BMI 42.1
--- NOTE | 2023-11-19 09:44 | A.OFFPC_ITS ---
Vital Signs 11/19/23 09:44 Height 5 ft Weight 215 lb 6 oz BMI 42.1 BP 126/74 Blood Pressure Location Rt brachial Position Sitting Pulse 68 Pulse Source Pulse Oximeter Pulse Oximetry (%) 98 Oxygen Delivery Method Room Air Intake Visit Reasons: follow up Allergies latex [LATEX] Allergy (Unknown, Verified 11/19/23 09:44) skin breakdown Medication List - Last Reconciled 11/19/23 by Leo Ray MD No Known Home Meds Tobacco use date assessed: 11/19/23 Dental Screening Dental Screen Date: 11/19/23 Did you have a dental visit in the last 12 months?: Yes Did you have a dental problem in the last 6 months where you did not have access to dental care?: No Was dental information given to patient?: Patient has dentist HPI follow up HPI Details Patient is a 48-year-old female came in today to talk about few medical problems Patient has been under tremendous stress, she is taking care of her 80-year-old grandmother Her grandfather summer of this year and earlier this year her mother She admit to feeling anxious at time but has not had any panic attacks Complaining of chest pains off and on Patient also have history of GERD EKG done today shows heart rate of 63 beats per minute normal sinus rhythm no acute findings Has been having palpitations as well Due for labs, patient is on iron supplement due to anemia Want to do colonoscopy with [facility], referral placed Patient have a history of gastric bypass in and did not lose some weight and gained some but have excess skin on her arms She is enquiring about removing that, she is going to look into cosmetic surgeon and will get back to me. We will book a telemedicine visit to go over her lab reports and to talk about her stress further [facility] Medical History Lumbar radiculitis Migraine headache B12 deficiency Iron deficiency Vitamin D deficiency Obesity Surgical History Status post breast reduction History of gastric bypass History of tubal ligation History of tonsillectomy Family History Father No problems noted. Mother HTN (hypertension) Arthritis Prediabetes Substance use disorder Maternal Grandmother Heart problem Lymphoma Arthritis Unknown family medical history Breast cancer Paternal Grandmother Diabetes mellitus Heart problem Unknown family medical history Paternal Grandfather Diabetes mellitus Heart problem Maternal Grandfather Unknown family medical history Sister No problems noted. Sister No problems noted. Daughter No problems noted. Brother No problems noted. Brother No problems noted. Brother No problems noted. Brother No problems noted. Social History Housing: House Alcohol intake: never Patient Tobacco Use Status: Never used Tobacco e-Cigarette/Vaping Use: Never Used service: No Current occupational status: employed Cognitive needs: No Hearing needs: No Vision needs: Yes Female Reproductive History Menstrual Age of Menarche: 14 Questionnaire PHQ-9 Over the last 2 weeks, how often have you been bothered by any of the following problems? 1. Little interest or pleasure in doing things: not at all 2. Feeling down, depressed, or hopeless: not at all 3. Trouble falling or staying asleep, or sleeping too much: not at all 4. Feeling tired or having little energy: not at all 5. Poor appetite or overeating: not at all 6. Feeling bad about yourself - or that you are a failure or have let yourself or your family down: not at all 7. Trouble concentrating on things, such as reading the newspaper or watching television: not at all 8. Moving or speaking so slowly that other people could have noticed. Or the opposite - being so fidgety or restless that you have been moving around a lot more than usual: not at all 9. Thoughts that you would be better off or of hurting yourself in some way: not at all Total score: 0 Depression Screening Interpretation: Negative Depression Screening Done: Yes 76294 - PHQ-9 Billing: Yes Source: Developed by Drs. Fahad Beaulieu, Tawanna Talavera, Armen Javier and colleagues, with an educational klarissa from [employer]. Thrive Questionnaire Date Thrive assessed: 11/19/23 I am a: Patient What is your living situation today?: I have a steady place to live Within the past 12 months, did the food you bought not last and you didn't have the money to get more?: Sometimes True Within the past 12 months, did you worry whether your food would run out before you got money to buy more?: Sometimes True Do you have trouble paying for medicines?: No Do you have trouble getting transportation to medical appointments?: No Do you have trouble paying your heating and electricity bill?: No Do you have trouble taking care of your child, family member or friend?: No Do you have trouble with day-to-day activities such as bathing, preparing meals, shopping, managing finances, etc.?: No Are you currently unemployed and looking for a job?: No Are you interested in more education?: No Please select the resources that you would like help with: None Currently or been in a relationship where the following occur: No concerns reported THRIVE Score: 2 AUDIT C Alcohol Use Questionnaire (AUDIT-C) 1. How often do you have a drink containing alcohol?: Never 3. How often do you have six or more drinks on one occasion?: Never Total Score: 0 Score Reviewed/Action Taken: Yes MUSHTAQ-7 AMB Questionnaire MUSHTAQ-7 Date MUSHTAQ - 7 assessed: 11/19/23 Feeling nervous, anxious, or on edge: 0 = Not at all Not being able to stop or control worryin = Not at all Worrying too much about different things: 0 = Not at all Trouble relaxin = Not at all Being so restless that it is hard to sit still: 0 = Not at all Becoming easily annoyed or irritable: 0 = Not at all Feeling afraid as if something awful might happen: 0 = Not at all Total MUSHTAQ-7 score (0-4 normal; 5-9 mild; 10-14 moderate; 15-21 severe): 0 Source: Developed by Drs. Fahad Beaulieu, Tawanna Talavera, Armen Javier and colleagues, with an educational klarissa from [employer]. MUSHTAQ-7 Assessment Billing MUSHTAQ-7 Assessment Tool: MUSHTAQ-7 Assessment 69153 Review of Systems Const Denies chills and Denies fever(s) ENT Denies epistaxis and Denies nasal discharge Card Denies chest pain Resp Denies chest congestion, Denies cough and Denies hemoptysis GI Denies diarrhea and Denies nausea Skin/Breast Denies rash Neuro Reports no additional complaints Psych Reports no additional complaints Endo Reports no additional complaints Physical exam (Primary Care) Vital Signs: Last Vital Signs Pulse 68 11/19/23 09:44 BP 126/74 11/19/23 09:44 Pulse Ox 98 11/19/23 09:44 Oxygen Delivery Method Room Air 11/19/23 09:44 BMI result Body Mass Index 42.1 Tobacco/Smoking Status: Tobacco use Status Tobacco use date assessed 11/19/23 11/19/23 09:47 Patient Tobacco Use Status Never used Tobacco 11/19/23 09:47 e-Cigarette/Vaping Use Never Used 11/19/23 09:47 PHQ-9: PHQ-9 Score PHQ-9: Total score 0 11/19/23 10:31 Depression Screening Interpretation: Negative Thrive Assessment: Date of Thrive Assessment Date Thrive assessed 11/19/23 11/19/23 09:47 Currently or been in a relationship where the following occur: No concerns reported Const General: cooperative, comfortable and no acute distress Orientation/consciousness: patient oriented x3 HENMT Head: Yes normocephalic Eyes General: appearance normal, both eyes and all related structures Neck Neck: Yes supple Resp Effort & Inspection: normal respiratory effort, no cough and no stridor Cardio Rhythm: regular rhythm Heart sounds: S1 normal heart sound present and S2 normal heart sound present Skin General skin exam: turgor normal Neuro General: patient oriented x3, tone normal and moves all extremities Extrem Right lower extremity: no edema Left lower extremity: no edema Office Procedures EKG 60625-[id number], Complete Assessment and Plan Assessment & Plan (1) Chest pain: Code(s): R07.9 - Chest pain, unspecified Qualifiers: Chest pain type: unspecified Qualified Code(s): R07.9 - Chest pain, unspecified (2) Stress: Code(s): F43.9 - Reaction to severe stress, unspecified (3) Iron deficiency anemia: Code(s): D50.9 - Iron deficiency anemia, unspecified Qualifiers: Iron deficiency anemia type: unspecified iron deficiency Qualified Code(s): D50.9 - Iron deficiency anemia, unspecified (4) Vitamin D deficiency: Code(s): E55.9 - Vitamin D deficiency, unspecified (5) Chronic GERD: Code(s): K21.9 - Gastro-esophageal reflux disease without esophagitis (6) Obesity, morbid, BMI 40.0-49.9: Code(s): E66.01 - Morbid (severe) obesity due to excess calories (7) B12 deficiency: Code(s): E53.8 - Deficiency of other specified B group vitamins (8) Anxiety, generalized: Code(s): F41.1 - Generalized anxiety disorder (9) Colon cancer screening: Code(s): Z12.11 - Encounter for screening for malignant neoplasm of colon (10) Foul smelling urine: Code(s): R82.90 - Unspecified abnormal findings in urine Plan Patient is a 48-year-old female came in today to talk about few medical problems Patient has been under tremendous stress, she is taking care of her 80-year-old grandmother Her grandfather summer of this year and earlier this year her mother She admit to feeling anxious at time but has not had any panic attacks Complaining of chest pains off and on Patient also have history of GERD EKG done today shows heart rate of 63 beats per minute normal sinus rhythm no acute findings Has been having palpitations as well Due for labs, patient is on iron supplement due to labs Complaining of foul-smelling urine I have added UA to her lab order Want to do colonoscopy with [facility], referral placed Patient have a history of gastric bypass in 208 and did not lose some weight and gained some but have excess skin on her arms She is enquiring about removing that, she is going to look into cosmetic surgeon and will get back to me. We will book a telemedicine visit to go over her lab reports and to talk about her stress further 45 minute appointment including reviewing chart, [id number]-[id number] with the patient, EKG, coordination of care Orders: Orders Complete Blood Count Auto Diff Today D50.9 - Iron deficiency anemia, unspecified, E53.8 - Deficiency of other specified B group vitamins, E55.9 - Vitamin D deficiency, unspecified, E61.1 - Iron deficiency, E66.01 - Morbid (severe) obesity due to excess calories, F41.1 - Generalized anxiety disorder, F43.9 - Reaction to severe stress, unspecified, K21.9 - Gastro-esophageal reflux disease without esophagitis, R07.9 - Chest pain, unspecified Comprehensive Tyler. Panel Fast Today D50.9 - Iron deficiency anemia, unspecified, E53.8 - Deficiency of other specified B group vitamins, E55.9 - Vitamin D deficiency, unspecified, E61.1 - Iron deficiency, E66.01 - Morbid (severe) obesity due to excess calories, F41.1 - Generalized anxiety disorder, F43.9 - Reaction to severe stress, unspecified, K21.9 - Gastro-esophageal reflux disease without esophagitis, R07.9 - Chest pain, unspecified IRON PROFILE Today D50.9 - Iron deficiency anemia, unspecified, E53.8 - Deficiency of other specified B group vitamins, E55.9 - Vitamin D deficiency, unspecified, E61.1 - Iron deficiency, E66.01 - Morbid (severe) obesity due to excess calories, F41.1 - Generalized anxiety disorder, F43.9 - Reaction to severe stress, unspecified, K21.9 - Gastro-esophageal reflux disease without esophagitis, R07.9 - Chest pain, unspecified Vitamin D 25-OH (D2 and D3) Today D50.9 - Iron deficiency anemia, unspecified, E53.8 - Deficiency of other specified B group vitamins, E55.9 - Vitamin D deficiency, unspecified, E61.1 - Iron deficiency, E66.01 - Morbid (severe) obesity due to excess calories, F41.1 - Generalized anxiety disorder, F43.9 - Reaction to severe stress, unspecified, K21.9 - Gastro-esophageal reflux disease without esophagitis, R07.9 - Chest pain, unspecified Ferritin Today D50.9 - Iron deficiency anemia, unspecified, E53.8 - Deficiency of other specified B group vitamins, E55.9 - Vitamin D deficiency, unspecified, E61.1 - Iron deficiency, E66.01 - Morbid (severe) obesity due to excess calories, F41.1 - Generalized anxiety disorder, F43.9 - Reaction to severe stress, unspecified, K21.9 - Gastro-esophageal reflux disease without esophagitis, R07.9 - Chest pain, unspecified TSH reflex Free T4 Today D50.9 - Iron deficiency anemia, unspecified, E53.8 - Deficiency of other specified B group vitamins, E55.9 - Vitamin D deficiency, unspecified, E61.1 - Iron deficiency, E66.01 - Morbid (severe) obesity due to excess calories, F41.1 - Generalized anxiety disorder, F43.9 - Reaction to severe stress, unspecified, K21.9 - Gastro-esophageal reflux disease without esophagitis, R07.9 - Chest pain, unspecified Lipid Panel Today D50.9 - Iron deficiency anemia, unspecified, E53.8 - Deficiency of other specified B group vitamins, E55.9 - Vitamin D deficiency, unspecified, E61.1 - Iron deficiency, E66.01 - Morbid (severe) obesity due to excess calories, F41.1 - Generalized anxiety disorder, F43.9 - Reaction to severe stress, unspecified, K21.9 - Gastro-esophageal reflux disease without esophagitis, R07.9 - Chest pain, unspecified Vitamin B12 Today D50.9 - Iron deficiency anemia, unspecified, E53.8 - Deficiency of other specified B group vitamins, E55.9 - Vitamin D deficiency, unspecified, E61.1 - Iron deficiency, E66.01 - Morbid (severe) obesity due to excess calories, F41.1 - Generalized anxiety disorder, F43.9 - Reaction to severe stress, unspecified, K21.9 - Gastro-esophageal reflux disease without esophagitis, R07.9 - Chest pain, unspecified Magnesium Today D50.9 - Iron deficiency anemia, unspecified, F41.1 - Generalized anxiety disorder, F43.9 - Reaction to severe stress, unspecified, K21.9 - Gastro-esophageal reflux disease without esophagitis UA CC w/rflx Micro + Cult Today R82.90 - Unspecified abnormal findings in urine Referrals Gastroenterology Referral Z12.11 - Encounter for screening for malignant neoplasm of colon Coding Level of Care Code Est Pt Level 5 (97016) Diagnoses Chest pain, unspecified type R07.9 Chest pain type: unspecified Stress F43.9 Iron deficiency anemia, unspecified iron deficiency anemia type D50.9 Iron deficiency anemia type: unspecified iron deficiency Vitamin D deficiency E55.9 Chronic GERD K21.9 Obesity, morbid, BMI 40.0-49.9 E66.01 B12 deficiency E53.8 Anxiety, generalized F41.1 Colon cancer screening Z12.11 Foul smelling urine R82.90 CPT Codes EKG - CPT: 77806-[id number], Complete ([id number]) Additional Codes MUSHTAQ-7 Assessment Billing - MUSHTAQ-7 Assessment Tool: MUSHATQ-7 Assessment 75604 ([id number])
== END 2023-11-19 10:32 | disposition home or self-care (01) ==
PROVIDERS: PCP Internal Medicine; Visit Provider Internal Medicine
DX: R07.9 Chest pain, unspecified (principal); E66.01 Morbid (severe) obesity due to excess calories; Z68.41 Body mass index [BMI] 40.0-44.9, adult; F43.9 Reaction to severe stress, unspecified; D50.9 Iron deficiency anemia, unspecified; E55.9 Vitamin D deficiency, unspecified; K21.9 Gastro-esophageal reflux disease without esophagitis; E53.8 Deficiency of other specified B group vitamins; F41.1 Generalized anxiety disorder; Z12.11 Encounter for screening for malignant neoplasm of colon; R82.90 Unspecified abnormal findings in urine
CPT/HCPCS: 93000; 99215

== ENCOUNTER 2023-11-19 10:28 | Outpatient (REF) | payer OTHER, SELFPAY ==
[2023-11-19 13:37] LABS: Appearance Urine Cloudy; Color Urine Yellow; Glucose Urine UA Negative (Negative); Leukocyte Esterase Urine Negative (Negative); Nitrite Urine Negative (Negative); Urine Blood Negative (Negative); Urine Ketones Negative (Negative); Urine Protein Negative (Neg-Trace)
[2023-11-19 13:59] LABS: MANUAL DIFF FLAG NO
[2023-11-19 14:02] LABS: Basophils Percent Auto 0.8 % (0-2); Eosinophils Absolute Auto 0.2 X10*3/uL (0.0-0.4); Eosinophils Percent Auto 3.3 % (0-4); Hematocrit 39.6 % (37.0-47.0); Hemoglobin 12.9 g/dl (12.0-16.0); Imm Gran Abs Auto 0.01 X10*3/uL (0.00-0.03); Imm Gran Pct Auto 0.2 % (0.0-0.4); Mean Corpuscular HGB Conc 32.6 g/dl (31.0-35.0); Mean Corpuscular Hemoglobin 28.6 pg (27.0-33.0); Mean Corpuscular Volume 87.8 fL (80.0-98.0); Mean Platelet Volume 10.6 fL (9.4-12.3); Monocytes Absolute Auto 0.5 X10*3/uL (0.1-1.2); Monocytes Percent Auto 10.6 % (2-11); Neutrophils Absolute Auto 3.1 x10*3/uL (2.0-8.3); Neutrophils Percent Auto 64.1 % (45-73); Platelet Count 372 X10*3/uL (160-400); Red Blood Count 4.51 X10*6/uL (4.20-5.50); Red Cell Distribution Width 12.5 % (11.0-16.0); White Blood Count 4.9 X10*3/uL (4.8-10.8)
[2023-11-19 14:21] LABS: Alanine Aminotransferase 14 U/L (0-31); Albumin Level 3.5 g/dL (3.5-5.0); Alkaline Phosphatase 51 U/L (39-117); Anion Gap 10 (12-20); Aspartate Amino Transferase 23 U/L (5-31); Bilirubin Total 0.3 mg/dL (0.0-1.0); Blood Urea Nitrogen 11 mg/dL (9-16); Calcium 8.8 mg/dL (8.4-10.2); Carbon Dioxide 28 mmol/L (22-29); Chloride 104 mmol/L (96-108); Cholesterol 168 mg/dL (<200); Estimated Glomerular Filt Rate > 60; Glucose Fasting 90 mg/dL (60-99); HDL Cholesterol 61 mg/dL (>40); Iron 77 mcg/dL (30-160); LDL Cholesterol Calculated 91 mg/dL (<100); Magnesium 2.2 mg/dL (1.6-2.6); Percent Iron Saturation 28 % (15-50); Potassium 4.3 mmol/L (3.3-5.1); Sodium 138 mmol/L (135-145); Total Iron Binding Capacity 272 mcg/dL (228-428); Total Protein 6.6 g/dL (6.5-8.0); Triglycerides 81 mg/dL (<150); Unsaturated Iron Binding 195 ug/dL
[2023-11-19 14:41] LABS: Vitamin B12 479 pg/mL (200-900)
[2023-11-19 14:43] LABS: Ferritin 37 ng/mL (10-250); TSH reflex Free T4 0.91 uIU/mL (0.32-4.0)
[2023-11-24 17:19] LABS: Vitamin D 25-OH, D2 <4 ng/mL; Vitamin D 25-OH, D3 34 ng/mL; Vitamin D 25-OH, Total 34 ng/mL (30-100)
== END 2023-11-19 10:29 | disposition home or self-care (01) ==
LOC: HO.HMGCLDS 10:28
PROVIDERS: PCP Internal Medicine; Visit Provider Internal Medicine
DX: E66.01 Morbid (severe) obesity due to excess calories (principal); E61.1 Iron deficiency; E53.8 Deficiency of other specified B group vitamins; E55.9 Vitamin D deficiency, unspecified; R07.9 Chest pain, unspecified; K21.9 Gastro-esophageal reflux disease without esophagitis; F41.1 Generalized anxiety disorder; F43.9 Reaction to severe stress, unspecified; R82.90 Unspecified abnormal findings in urine
CPT/HCPCS: 36415; 80053; 80061; 81003; 82306; 82607; 82728; 83540; 83735; 84443; 85025

== ENCOUNTER 2023-12-16 08:54 | Outpatient (AMB) | payer OTHER, SELFPAY ==
--- NOTE | 2023-12-16 08:57 | AM.OFFWIN_ITS ---
Intake Vital Signs 12/16/23 09:01 Height 5 ft Weight 212 lb BMI 41.4 BP 118/82 Blood Pressure Location Lt brachial Position Sitting Pulse 86 Pulse Source Pulse Oximeter Temp 98.4 F Temp Source Oral Pulse Oximetry (%) 98 Oxygen Delivery Method Room Air Intake Visit Reasons: EP chest pain, headache, ? sinus infection Intake Note: Patient here for headache, right ear pain, back pain and chest pain she is questioning if its bronchitis. Patient Tobacco Use Status: Never used Tobacco Allergies latex [LATEX] Allergy (Unknown, Verified 12/16/23 09:02) skin breakdown Do you need a note to return to daycare/school/sports/work: Yes HPI EP chest pain, headache, ? sinus infection HPI Details This note is constructed using voice recognition software. While every effort has been made to ensure accuracy, transcriber errors may have been included. The patient is a 48 year old female who presents to the clinic today with cough, congestion, and pain in her back worsening over the past 3 days. She notes she has been suffering from an upper respiratory infection, and typically does get 1 about this time each year, she does not treat herself for allergies, but does feel that she has an asthmatic type response each year to the symptoms that she gets. Shortness of typically when she does this she has been advised to use an inhaler, which she does not have 1 at home. She has been trying [id number] methods but are not resolving her symptoms. She has been testing for COVID which has been negative. [facility]LY [facility] Medical History Lumbar radiculitis Migraine headache B12 deficiency Iron deficiency Vitamin D deficiency Obesity Surgical History Status post breast reduction History of gastric bypass History of tubal ligation History of tonsillectomy Family History Father No problems noted. Mother HTN (hypertension) Arthritis Prediabetes Substance use disorder Maternal Grandmother Heart problem Lymphoma Arthritis Unknown family medical history Breast cancer Paternal Grandmother Diabetes mellitus Heart problem Unknown family medical history Paternal Grandfather Diabetes mellitus Heart problem Maternal Grandfather Unknown family medical history Sister No problems noted. Sister No problems noted. Daughter No problems noted. Brother No problems noted. Brother No problems noted. Brother No problems noted. Brother No problems noted. Social History Housing: House Alcohol intake: never Patient Tobacco Use Status: Never used Tobacco e-Cigarette/Vaping Use: Never Used service: No Current occupational status: employed Cognitive needs: No Hearing needs: No Vision needs: Yes Female Reproductive History Menstrual Age of Menarche: 14 Review of Systems Const All systems reviewed & are unremarkable except as noted in HPI and below Physical Exam Vital Signs: Last Vital Signs Temp 98.4 F 12/16/23 09:01 Pulse 86 12/16/23 09:01 BP 118/82 12/16/23 09:01 Pulse Ox 98 12/16/23 09:01 Oxygen Delivery Method Room Air 12/16/23 09:01 BMI result Body Mass Index 41.4 Const General: cooperative, healthy appearing, comfortable and no acute distress Orientation/consciousness: patient oriented x3 Limitations: no limitations HEENT Head: Yes normal to inspection Ears: hearing grossly normal bilaterally, external ears normal and TM's normal bilaterally General nose exam: Normal external nose present, Normal nares present and No nasal discharge present Face and sinus: Yes normal facial exam and Yes sinuses nontender Mouth: Normal oral and palatal mucosa present and moist mucous membranes Throat: Yes tonsils normal, Yes uvula midline and Yes posterior oropharynx abnormal (Erythema) Eyes General: appearance normal, both eyes and all related structures Neck Neck: Yes normal visual inspection Resp Effort & Inspection: normal respiratory effort, able to speak in complete sentences, Actively coughing, no respiratory distress, not tachypneic, no tripod positioning and no use of accessory muscles Auscultation: diminished lung sounds on the left in the lower lung neri Cardio Jugular venous distension: no JVD Rate: regular rate Rhythm: regular rhythm Heart sounds: S1 normal heart sound present, S2 normal heart sound present, no click, no gallops, no murmurs and no rubs Skin General skin exam: no rashes or lesions noted, elasticity normal and turgor normal Neuro General: patient oriented x3 Extrem General: Yes normal to inspection and Yes no clubbing, cyanosis or edema Assessment & Plan Assessment & Plan (1) Atypical pneumonia: Code(s): J18.9 - Pneumonia, unspecified organism Plan: Antibiotics sent to requested pharmacy as well as albuterol inhaler. Advised patient to consider treatment for allergies now and with future seasons to prevent future events. Advised patient to remain out of work today. Advised follow up with worsening symptoms or failure to resolve, particularly should she develop any dyspnea. Offered chest x-ray for confirmation, patient declined. Plan See above for full details and plan. Medications: New azithromycin For 250 mg dose pack: take 500 mg today (day 1), then 250 mg for 4 days (days 2-5) PO 6 tabs 0RF albuterol sulfate 90 mcg/actuation (Ventolin HFA) 1 inh inhalation QID PRN 8.5 grams 0RF shortness of breath or wheezing Coding Level of Care Code Est Pt Level 4 (32275) Diagnoses Atypical pneumonia J18.9
[2023-12-16 09:01] VITALS: BP 118/82; PULSE 86; TEMP 36.9; O2SAT 98; BMI 41.4
== END 2023-12-16 09:23 | disposition home or self-care (01) ==
PROVIDERS: PCP Internal Medicine; Visit Provider Registered Nurse
DX: J18.9 Pneumonia, unspecified organism (principal)

== ENCOUNTER → 2023-12-16 08:54 | Outpatient (BNVA) | payer OTHER, SELFPAY | PROVIDERS: PCP Internal Medicine; Visit Provider Registered Nurse | DX: J18.9 Pneumonia, unspecified organism (principal) | CPT/HCPCS: 99212 ==

== ENCOUNTER 2024-04-21 13:03 | Outpatient (AMB) | payer OTHER, SELFPAY ==
--- NOTE | 2024-04-21 13:25 | AM.OFFWIN_ITS ---
Intake Vital Signs 04/21/24 13:27 Weight 219 lb BP 110/68 Blood Pressure Location Rt brachial Position Sitting Pulse 66 Pulse Source Pulse Oximeter Pulse Oximetry (%) 98 Oxygen Delivery Method Room Air Intake Visit Reasons: EP arch pain on RT foot Intake Note: Patient here for right foot pain that has been present for about 1 month. Patient Tobacco Use Status: Never used Tobacco Allergies latex [LATEX] Allergy (Unknown, Verified 04/21/24 13:28) skin breakdown Do you need a note to return to daycare/school/sports/work: No HPI HPI Comments History of Present Illness Details History of Present Illness - The patient is a 48-year-old female pr esenting with pain in the right achilles tendon. - Symptoms commenced one month ago witho ut a clear traumatic event. - Self-management included using ibuprof en; however, the problem persists and worsens with prolonged activity. - Pain subsides with elevation and rest. - Occupation involves extensive periods on foot, exacerbating symptoms. - Non-supportive footwear contributes to the pain. Physical Exam General: Cooperative, healthy appearing, comfortable, no acute distress and well developed Orientation: Patient oriented x3 Limitations: No limitations Head: Normal to inspection Ears: Hearing grossly normal bilaterally Nose: Normal external nose present Face and sinus: Normal facial exam Eyes: Appearance normal, both eyes and all related structures Neck: Normal visual inspection and Yes full ROM Respiratory: Normal respiratory effort and able to speak in complete sentences. Skin: no rashes or lesion Neuro: Patient oriented x3 Extremities: right side, slight swelling noted on the Achilles tendon and heel and slight TTP, no defect in the tendon, right ankle with full ROM, toes with full ROM, otherwise normal to inspection. FOR[facility]LY [facility] Medical History Lumbar radiculitis Migraine headache B12 deficiency Iron deficiency Vitamin D deficiency Obesity Surgical History Status post breast reduction History of gastric bypass History of tubal ligation History of tonsillectomy Family History Father No problems noted. Mother HTN (hypertension) Arthritis Prediabetes Substance use disorder Maternal Grandmother Heart problem Lymphoma Arthritis Unknown family medical history Breast cancer Paternal Grandmother Diabetes mellitus Heart problem Unknown family medical history Paternal Grandfather Diabetes mellitus Heart problem Maternal Grandfather Unknown family medical history Sister No problems noted. Sister No problems noted. Daughter No problems noted. Brother No problems noted. Brother No problems noted. Brother No problems noted. Brother No problems noted. Social History Housing: House Alcohol intake: never Patient Tobacco Use Status: Never used Tobacco e-Cigarette/Vaping Use: Never Used service: No Current occupational status: employed Cognitive needs: No Hearing needs: No Vision needs: Yes Female Reproductive History Menstrual Age of Menarche: 14 Review of Systems Const All systems reviewed & are unremarkable except as noted in HPI and below Physical Exam Vital Signs: Last Vital Signs Pulse 66 04/21/24 13:27 BP 110/68 04/21/24 13:27 Pulse Ox 98 04/21/24 13:27 Oxygen Delivery Method Room Air 04/21/24 13:27 Assessment & Plan Assessment & Plan (1) Achilles tendinitis, right leg: Code(s): M76.61 - Achilles tendinitis, right leg Plan: Recommended utilizing naproxen every 12 hours to manage inflammation and advised the patient to rest, apply ice, and use supportive shoes and heel lifts for Achilles tendinitis management. Persistent symptoms should prompt discussion with Dr. Ray about possibly engaging physical therapy interventions for further management. Patient was informed and verbally consented to the use of an ambient scribe for clinic note documentation during this visit. Coding Level of Care Code Est Pt Level 3 (54156) Diagnoses Achilles tendinitis, right leg M76.61
--- OUTSIDE RECORDS SUMMARY | 2024-04-21 13:26 | XMS_ITS | Clinical Summary ---
Author Organization [employer] [facility] Address [address] [place] [address] Care Team Providers Care Life Sciences Manager Name Role Phone Unavailable Primary Care Provider Unavailabl e Social History Tobacco Use Types Packs/Day Years Used Date Smoking Tobacco: Never Assessed Comments Unknown Sex and Gender Information Value Date Recorded Sex Assigned at Female 01/05/2022 10:14 AM EDT Legal Sex Female 10:14 AM EDT Gender Identity Female 01/05/2022 10:14 AM EDT Sexual Orientation Don't know 01/05/2022 10 :14 AM EDT Plan of Treatment Health Maintenance Due Date Last Done Comments CT Colonography 1975 Colonoscopy 1975 Colorectal Cancer Screening 1975 Depression Screening 1975 FIT DNA/Cologuard 1975 FIT 1975 FOBT 1975 Sigmoidoscopy 1975 Alcohol/Substance Use Screening 1987 Tobacco Screening 1987 Family Planning (PISQ) 10/28/1990 Hepatitis B Vaccines (1 of 3 - 19+ 3-dose series) 10/28/1994 11/12/2005, 06/06/2000, 12/04/1997, Additional history exists Pap Smear 10/28/1996 Cervical Cancer Screening 10/28/2005 HPV/Cotest 10/28/2005 Mammogram 2015 DTaP/Tdap/Td Vaccines (2 - Td or Tdap) 03/11/2019 03/11/2009, 11/30/1996 COVID-19 Vaccine ( - season) 2023 Influenza Vaccine (#1) 2023 3, 12/05/2010, 12/09/2009 Zoster Vaccines (1 of 2) 10/28/2025 RSV Patients and Patients Aged 60 years or older (1 - 1-dose 75+ series) 10/28/2050 HIB Vaccines Aged Out No longer eligi ble based on patient's age to complete this topic HPV Vaccines Aged Out No longer eligi ble based on patient's age to complete this topic Hepatitis A Vaccines Aged Out No long er eligible based on patient's age to complete this topic IPV Vaccines Aged Out No longer eligi ble based on patient's age to complete this topic Meningococcal Vaccine Aged Out No shady kelle eligible based on patient's age to complete this topic Pneumococcal Vaccine: Pediatrics (0 to 5 Years) and At-Risk Patients (6 to 49) Years) Aged Out No longer eligible based on patient's age to complete this topic RSV under 20 months Aged Out No longe r eligible based on patient's age to complete this topic Rotavirus Vaccines Aged Out No longer eligible based on patient's age to complete this topic
--- OUTSIDE RECORDS SUMMARY | 2024-04-21 13:26 | XMS_ITS | Clinical Summary ---
Author Organization [facility] Address [address] [place] [address] Care Team Providers Care Stranding Machine Operator Name Role Phone Leo Churchill MD Primary Care Provider [phone] Social History Tobacco Use Types Packs/Day Years Used Date Smoking Tobacco: Never Assessed Comments Unknown Sex and Gender Information Value Date Recorded Sex Assigned at Not on file Legal Sex Female 5:08 AM EST Gender Identity Not on file Sexual Orientation Not on file Plan of Treatment Health Maintenance Due Date Last Done Comments DTaP,Tdap,and Td Vaccines (1 - Tdap) 10/28/1994 Hepatitis B Vaccines (1 of 3 - 19+ 3-dose series) 10/28/1994 Cervical Cancer Screening: Pap Smear 10/28/1996 Colorectal Cancer Screening: Colonoscopy 02/08/2022 Depression Screening 02/08/2022 HIV Screening 02/08/2022 Hepatitis C Screening 02/08/2022 Social Influencers of Health Screening 02/08/2022 COVID-19 Vaccine ( season) 2023 Influenza Vaccine (#1) 2023 Breast Cancer Screening 10/26/2025 10/27/19 24, 04/23/2022, 04/23/2021, Additional history exists HIB Vaccines Aged Out No longer eligi [...] on patient's age to complete this topic MMR Vaccines Aged Out No longer eligi ble based on patient's age to complete this topic Meningococcal ACWY Vaccine Aged Out N o longer eligible based on patient's age to complete this topic Pneumococcal Vaccine: Pediatrics (0 to 5 Years) and At-Risk Patients (6 to 64 Years) Aged Out No longer eligible based on patient's age to complete this topic RSV Immunization Patients Under 20 months Aged Out No longer eligible based on patient's age to complete this topic Varicella Vaccines Aged Out No longer eligible based on patient's age to complete this topic Procedures Procedure Name Priority Date/Time Associated Diagnosis Comments [facility] SCREENING DIGITAL Routine 10/27/2023 11:25 AM EDT Encounter for screening mammogram for malignant neoplasm of breast from Last 3 Months or Most Recently Relevant to Health Maintenance Results * GISELA SCREENING DIGITAL (10/27/2023 11:25 AM EDT) Anatomical Region Laterality Modality Mammography 10/26/2023 2:34 PM EDT Narrative 10/27/2023 11:25 AM EDT [facility] Diagnostic Imaging Department [address] [place] [address] Patient: ??LAUREN JEFFERY ?/Age/Sex: 1975 - 47 - F Unit#: ??[id number] ? Location/Status: ??SPDIMAM/REG CLI ? Mnemonic/Ordering Site: ??DIGSC/SPMAM Ordering Physician: ??LEO CHURCHILL MD Gisela Screening Digital - 10/26/23 - 1452 Report Status:Signed EXAM: [facility] Screening Digital EXAM DATE AND TIME: 10/26/2023 2:53 PM HISTORY: ??Screening. Reduction mammoplasty in 2006. Maternal grandmother had breast carcinoma. COMPARISON: ??04/23/22, 04/22/21, 04/17/20 TECHNIQUE: Bilateral digital breast tomosynthesis was performed in the CC and MLO projections. Computer aided detection with modulR 3D 3.1 was employed. TISSUE DENSITY: b. There are scattered areas of fibroglandular density. FINDINGS: Reduction mammoplasty sequelae are again noted. No suspicious masses, grouped microcalcifications, or developing architectural distortion are seen. The skin and vascularity are unremarkable. IMPRESSION: Stable mammographic appearance of the breasts. ??No evidence of malignancy is seen. A negative mammogram in the presence of a clinically suspicious palpable abnormality does not preclude the possibility of malignancy or alter the indications for biopsy. BI-RADS: ??Category 2: Benign RECOMMENDATION(S): 1: Routine screening mammogram BILATERAL in 1 year. Dictating Physician: ??LISA ELIAS MD Electronically Signed by: ??LISA ELIAS MD Dic Date/Time: ??10/27/23 1124 Sign date/Time: ??10/27/23 1125 Procedure Note Lisa Elias MD - 12/22/2023 [facility] Diagnostic Imaging Department [address] [place] [address] Patient: LAUREN JEFFERY /Age/Sex: 1975 - 47 - F Unit#: [id number] Location/Status: SPDIMAM/REG CLI Mnemonic/Ordering Site: [facility] Ordering Physician: LEO CHURCHILL MD [facility] Screening Digital - 10/26/23 - 1452 Report Status:Signed EXAM: [facility] Screening Digital EXAM DATE AND TIME: 10/26/2023 2:53 PM HISTORY: Screening. Reduction mammoplasty in 2006. Maternal grandmotherhad breast carcinoma. COMPARISON: 04/23/22, 04/22/21, 04/17/20 TECHNIQUE: Bilateral digital breast tomosynthesis was performed in the CCand MLO projections. Computer aided detection with modulR 3D 3.1was employed. TISSUE DENSITY: b. There are scattered areas of fibroglandular density. FINDINGS: Reduction mammoplasty sequelae are again noted. No suspicious masses,grouped microcalcifications, or developing architectural distortion are seen. Theskin and vascularity are unremarkable. IMPRESSION: Stable mammographic appearance of the breasts. No evidence of malignancyis seen. A negative mammogram in the presence of a clinically suspicious palpable abnormality does not preclude the possibility of malignancy or alter the indications for biopsy. BI-RADS: Category 2: Benign RECOMMENDATION(S): 1: Routine screening mammogram BILATERAL in 1 year. Dictating Physician: LISA ELIAS MD Electronically Signed by: LISA ELIAS MD Dic Date/Time: 10/27/23 1124 Sign date/Time: 10/27/23 1125 Leo Churchill MD IMG BI PROCEDURES Final Result from Last 3 Months or Most Recently Relevant to Health Maintenance Care Teams Stranding Machine Operator Relationship Specialty Start Date End Date Leo Churchill MD [address] [place] [id number] PCP - General Internal Medicine 02/12/17
--- OUTSIDE RECORDS SUMMARY | 2024-04-21 13:26 | XMS_ITS | Encounter Summary ---
Author Organization [employer] [facility] Address [address] [place] [address] Care Team Providers Care Personal Loan Specialist Name Role Phone Unavailable Primary Care Provider Unavailabl e Encounter Details Date Type Department Care Team (Latest Contact Info) Description 01/11/2019 Abstract C CONVERSIONS Dental, Provider, DDS Social History Tobacco Use Types Packs/Day Years Used Date Smoking Tobacco: Never Assessed Comments Unknown Sex and Gender Information Value Date Recorded Sex Assigned at Female 01/05/2022 10:14 AM EDT Legal Sex Female 10:14 AM EDT Gender Identity Female 01/05/2022 10:14 AM EDT Sexual Orientation Don't know 01/05/2022 10 :14 AM EDT documented as of this encounter Plan of Treatment Not on file documented as of this encounter Visit Diagnoses Not on filedocumented in this encounter
[2024-04-21 13:27] VITALS: BP 110/68; PULSE 66; O2SAT 98
== END 2024-04-21 13:58 | disposition home or self-care (01) ==
PROVIDERS: PCP Internal Medicine; Visit Provider Physician Assistant
DX: M76.61 Achilles tendinitis, right leg (principal)

== ENCOUNTER → 2024-04-21 13:03 | Outpatient (BNVA) | payer OTHER, SELFPAY | PROVIDERS: PCP Internal Medicine | DX: M76.61 Achilles tendinitis, right leg (principal) | CPT/HCPCS: 99212 ==

== ENCOUNTER 2024-05-24 13:45 | Outpatient (AMB) | payer OTHER, SELFPAY ==
[2024-05-24 13:49] VITALS: BP 124/80; PULSE 89; O2SAT 100; BMI 43.0
--- NOTE | 2024-05-24 13:49 | A.OFFPC_ITS ---
Vital Signs 05/24/24 13:49 Height 5 ft Weight 220 lb BMI 43.0 BP 124/80 Blood Pressure Location Lt brachial Position Sitting Pulse 89 Pulse Source Pulse Oximeter Pulse Oximetry (%) 100 Oxygen Delivery Method Room Air Intake Visit Reasons: PE Allergies latex [LATEX] Allergy (Unknown, Verified 05/24/24 13:49) skin breakdown Medication List - Last Reconciled 05/24/24 by Leo Ray MD Tobacco use date assessed: 05/24/24 Dental Screening Dental Screen Date: 05/24/24 Did you have a dental visit in the last 12 months?: Yes Did you have a dental problem in the last 6 months where you did not have access to dental care?: No Was dental information given to patient?: Patient has dentist HPI PE HPI Details Physical exam appointment The patient is a 48-year-old female - Obesity: The patient noted an increase in weight and classified herself as obese. She related her weight gain to lifestyle factors, including long work hours and consequent inadequate sleep and poor diet. Despite efforts at dietary management, the patient reported only slight fluctuations in weight. Patient is interested in starting set [facility] Maintenance - Routine laboratory screenings with nor mal results: CBC, thyroid function, kidney function, ferritin, B12, cholesterol, and vitamin D. - Mammogram performed in October of last year without remarkable findings; potential for missed findings due to obesity was noted. - Colonoscopy completed the prior month at [facility] with normal results; no polyps were found, and a follow-up is recommended in 10 years. - The patient is advised to return for f asting laboratory tests. - Discussed future weight management, in cluding potential consultation with an obesity specialist. -OBGYN visit up-to-date [facility] Medications - Inhaler: Use reported, not used this y ear. - Iron supplement for previously low iro n levels. Employment - Works long hours, often consecutively over two to three days, with shifts occasionally lasting up to 16 hours. This has impacted dietary habits and physical activity. Diagnostic results - Labs: CBC, ferritin, liver enzymes, ki dney function, B12, thyroid function, cholesterol, and vitamin D were all within normal limits. - Mammogram: Conducted in October of the previous year with inconclusive notes due to obesity-related technical difficulties. - Colonoscopy: Performed the prior month with unremarkable conclusions and recommendation for reassessment in 10 years. Patient Instructions - Have routine blood tests repeated, ens uring they are done fasting. - Consider consulting with a weight goldy gement specialist for assistance in weight control. - Zepbound script sent, if covered patie nt will notify so we can provide education Review of Systems - General: No fever no chills - Neurological: No headaches no dizzin ess - Ear nose throat: No sore throat no hearing difficulty no ear pain - Cardiovascular: No syncope, no chest pain, no palpitations - Gastrointestinal: No nausea vomiting or diarrhea - Endocrine: No polyuria polydipsia no heat intolerance - Genitourinary: No dysuria - Skin: No new complaints Physical Exam General: Cooperative, healthy appearing, comfortable, no acute distress Orientation: Patient oriented x3 Head: Normal to inspection Ears: Within normal limit visually Nose: Normal external nose present Face and sinus: Normal facial exam, patient reports some sinus issues and coughing Eyes: Appearance normal, extraocular movement intact pupils reactive Neck: Normal visual inspection and supple Respiratory: Normal respiratory effort and able to speak in complete sentences. Clear to auscultation, no stridor Cardiovascular: S1 and S2 Breast exam through OBGYN GI: Normal to inspection. Soft to palpation and nontender, no nausea, vomiting, diarrhea, or constipation Skin: Turgor normal, no acute findings, patient reports maintaining skin care for pores Neuro: Patient oriented x3, motor sensory intact, balance intact, tandem pass Extremities: Normal to inspection, full range of motion [facility] Medical History Lumbar radiculitis Migraine headache B12 deficiency Iron deficiency Vitamin D deficiency Obesity Surgical History Status post breast reduction History of gastric bypass History of tubal ligation History of tonsillectomy Family History Father No problems noted. Mother HTN (hypertension) Arthritis Prediabetes Substance use disorder Maternal Grandmother Heart problem Lymphoma Arthritis Unknown family medical history Breast cancer Paternal Grandmother Diabetes mellitus Heart problem Unknown family medical history Paternal Grandfather Diabetes mellitus Heart problem Maternal Grandfather Unknown family medical history Sister No problems noted. Sister No problems noted. Daughter No problems noted. Brother No problems noted. Brother No problems noted. Brother No problems noted. Brother No problems noted. Social History Housing: House Alcohol intake: never Patient Tobacco Use Status: Never used Tobacco e-Cigarette/Vaping Use: Never Used service: No Current occupational status: employed Cognitive needs: No Hearing needs: No Vision needs: Yes Female Reproductive History Menstrual Age of Menarche: 14 Questionnaire PHQ-9 Over the last 2 weeks, how often have you been bothered by any of the following problems? 1. Little interest or pleasure in doing things: not at all 2. Feeling down, depressed, or hopeless: not at all 3. Trouble falling or staying asleep, or sleeping too much: not at all 4. Feeling tired or having little energy: not at all 5. Poor appetite or overeating: not at all 6. Feeling bad about yourself - or that you are a failure or have let yourself or your family down: not at all 7. Trouble concentrating on things, such as reading the newspaper or watching television: not at all 8. Moving or speaking so slowly that other people could have noticed. Or the opposite - being so fidgety or restless that you have been moving around a lot more than usual: not at all 9. Thoughts that you would be better off or of hurting yourself in some way: not at all Total score: 0 Depression Screening Interpretation: Negative Depression Screening Done: Yes 69340 - PHQ-9 Billing: Yes Source: Developed by Drs. Fahad Beaulieu, Tawanna Talavera, Armen Javier and colleagues, with an educational klarissa from [employer]. Thrive Questionnaire Date Thrive assessed: 05/24/24 I am a: Patient What is your living situation today?: I choose not to answer this question Within the past 12 months, did the food you bought not last and you didn't have the money to get more?: I choose not to answer this question Within the past 12 months, did you worry whether your food would run out before you got money to buy more?: I choose not to answer this question Do you have trouble paying for medicines?: I choose not to answer this question Do you have trouble getting transportation to medical appointments?: I choose not to answer this question Do you have trouble paying your heating and electricity bill?: I choose not to answer this question Do you have trouble taking care of your child, family member or friend?: I choose not to answer this question Do you have trouble with day-to-day activities such as bathing, preparing meals, shopping, managing finances, etc.?: I choose not to answer this question Are you currently unemployed and looking for a job?: No Are you interested in more education?: No Please select the resources that you would like help with: None Currently or been in a relationship where the following occur: No concerns reported THRIVE Score: 0 AUDIT C Alcohol Use Questionnaire (AUDIT-C) 1. How often do you have a drink containing alcohol?: Never 3. How often do you have six or more drinks on one occasion?: Never Total Score: 0 Score Reviewed/Action Taken: Yes MUSHTAQ-7 AMB Questionnaire MUSHTAQ-7 Date MUSHTAQ - 7 assessed: 05/24/24 Feeling nervous, anxious, or on edge: 0 = Not at all Not being able to stop or control worryin = Not at all Worrying too much about different things: 0 = Not at all Trouble relaxin = Not at all Being so restless that it is hard to sit still: 0 = Not at all Becoming easily annoyed or irritable: 0 = Not at all Feeling afraid as if something awful might happen: 0 = Not at all Total MUSHTAQ-7 score (0-4 normal; 5-9 mild; 10-14 moderate; 15-21 severe): 0 Source: Developed by Drs. Fahad Beaulieu, Tawanna Talavera, Armen Javier and colleagues, with an educational klarissa from [employer]. MUSHTAQ-7 Assessment Billing MUSHTAQ-7 Assessment Tool: MUSHTAQ-7 Assessment 73347 Physical exam (Primary Care) Vital Signs: Last Vital Signs Pulse 89 05/24/24 13:49 BP 124/80 05/24/24 13:49 Pulse Ox 100 05/24/24 13:49 Oxygen Delivery Method Room Air 05/24/24 13:49 BMI result Body Mass Index 43.0 Tobacco/Smoking Status: Tobacco use Status Tobacco use date assessed 05/24/24 05/24/24 13:49 Patient Tobacco Use Status Never used Tobacco 05/24/24 13:49 e-Cigarette/Vaping Use Never Used 05/24/24 13:49 PHQ-9: PHQ-9 Score PHQ-9: Total score 0 05/24/24 13:56 Depression Screening Interpretation: Negative Thrive Assessment: Date of Thrive Assessment Date Thrive assessed 05/24/24 05/24/24 13:56 Currently or been in a relationship where the following occur: No concerns reported Coding Level of Care Code Est Pt Level 3 (56242) Est Pt Prev Care 40-64y(89292) Diagnoses Encounter for general adult medical examination with abnormal findings Z00.01 Morbid obesity due to excess calories E66.01 Vitamin D deficiency E55.9 Iron deficiency E61.1 B12 deficiency E53.8 Lumbar pain M54.50 Additional Codes MUSHTAQ-7 Assessment Billing - MUSHTAQ-7 Assessment Tool: MUSHTAQ-7 Assessment 88705 ([id number]) PHQ-9 - 02236 - PHQ-9 Billing: Yes ([id number]) Assessment & Plan Assessment & Plan (1) Encounter for general adult medical examination with abnormal findings: Code(s): Z00.01 - Encounter for general adult medical examination with abnormal findings Category: Medical (2) Morbid obesity due to excess calories: Comment: If your BMI is between 25 and 29.9, you are overweight. If your BMI is 30 or greater, you are obese. ___ Being obese is a problem, because it increases the risks of many different health problems. It can also make it hard for you to move, breathe, and do other things that people who are at a healthy weight can do easily. Plus, being obese can be hard emotionally. ___ What are the health risks of being obese? Being obese increases a persons risk of developing many health problems. Here are just a few examples: __ Diabetes High blood pressure, High cholesterol, Heart disease (including heart attacks) Stroke, Sleep apnea (a disorder in which you stop breathing for short periods while asleep) Asthma, Cancer __ Does being obese shorten a persons life? Yes. Studies show that people who are obese younger than people who are a healthy weight. They also show that the risk of goes up the heavier a person is. The degree of increased risk depends on how long the person has been obese, and on what other medical problems he or she has. , Reduce your carbohydrate intake and choose carbs that are complex. Remember as a general rule of thumb, avoid highly processed foods. If it's white and soft, it's probably been stripped of its nutritional value. Change white bread to whole wheat bread, white rice to brown rice, white potatoes to sweet potatoes, white pasta to whole wheat pasta. Monitor portion sizes too: protein should be no bigger than your fist. Limit your red meat intake to only once or twice a wk. Eat more white meat but make sure to avoid creamy sauces etc. Broiling, baking or grilling is best. Increase dark, green leafy vegetables and fruits. Code(s): E66.01 - Morbid (severe) obesity due to excess calories Category: Medical (3) Vitamin D deficiency: Code(s): E55.9 - Vitamin D deficiency, unspecified Category: Medical (4) Iron deficiency: Code(s): E61.1 - Iron deficiency Category: Medical (5) B12 deficiency: Code(s): E53.8 - Deficiency of other specified B group vitamins Category: Medical (6) Lumbar pain: Code(s): M54.50 - Low back pain, unspecified Category: Medical Plan Physical exam appointment The patient is a 48-year-old female - Obesity: The patient noted an increase in weight and classified herself as obese. She related her weight gain to lifestyle factors, including long work hours and consequent inadequate sleep and poor diet. Despite efforts at dietary management, the patient reported only slight fluctuations in weight. Patient is interested in starting set [facility] Health Maintenance - Routine laboratory screenings with normal results: CBC, thyroid function, kidney function, ferritin, B12, cholesterol, and vitamin D. - Mammogram performed in October of last year without remarkable findings; potential for missed findings due to obesity was noted. - Colonoscopy completed the prior month at [facility] with normal results; no polyps were found, and a follow-up is recommended in 10 years. - The patient is advised to return for fasting laboratory tests. - Discussed future weight management, including potential consultation with an obesity specialist. -OBGYN visit up-to-date [facility] Medications - Inhaler: Use reported, not used this year. - Iron supplement for previously low iron levels. Employment - Works long hours, often consecutively over two to three days, with shifts occasionally lasting up to 16 hours. This has impacted dietary habits and physical activity. Diagnostic results - Labs: CBC, ferritin, liver enzymes, kidney function, B12, thyroid function, cholesterol, and vitamin D were all within normal limits. - Mammogram: Conducted in October of the previous year with inconclusive notes due to obesity-related technical difficulties. - Colonoscopy: Performed the prior month with unremarkable conclusions and recommendation for reassessment in 10 years. Patient Instructions - Have routine blood tests repeated, ensuring they are done fasting. - Consider consulting with a weight director account management for assistance in weight control. - Zepbound script sent, if covered patient will notify so we can provide education Orders: Orders Complete Blood Count Auto Diff Today E53.8 - Deficiency of other specified B group vitamins, E55.9 - Vitamin D deficiency, unspecified, E61.1 - Iron deficiency, E66.01 - Morbid (severe) obesity due to excess calories, Z00.01 - Encounter for general adult medical examination with abnormal findings Comprehensive [place]. Panel Fast Today E53.8 - Deficiency of other specified B group vitamins, E55.9 - Vitamin D deficiency, unspecified, E61.1 - Iron deficiency, E66.01 - Morbid (severe) obesity due to excess calories, Z00.01 - Encounter for general adult medical examination with abnormal findings TSH reflex Free T4 Today E53.8 - Deficiency of other specified B group vitamins, E55.9 - Vitamin D deficiency, unspecified, E61.1 - Iron deficiency, E66.01 - Morbid (severe) obesity due to excess calories, Z00.01 - Encounter for general adult medical examination with abnormal findings UA CC w/rflx Micro + Cult Today E53.8 - Deficiency of other specified B group vitamins, E55.9 - Vitamin D deficiency, unspecified, E61.1 - Iron deficiency, E66.01 - Morbid (severe) obesity due to excess calories, Z00.01 - Encounter for general adult medical examination with abnormal findings Lipid Panel Today E53.8 - Deficiency of other specified B group vitamins, E55.9 - Vitamin D deficiency, unspecified, E61.1 - Iron deficiency, E66.01 - Morbid (severe) obesity due to excess calories, Z00.01 - Encounter for general adult medical examination with abnormal findings Vitamin D 25-OH (D2 and D3) Today E53.8 - Deficiency of other specified B group vitamins, E55.9 - Vitamin D deficiency, unspecified, E61.1 - Iron deficiency, E66.01 - Morbid (severe) obesity due to excess calories, Z00.01 - Encounter for general adult medical examination with abnormal findings Vitamin B12 Today E53.8 - Deficiency of other specified B group vitamins, E55.9 - Vitamin D deficiency, unspecified, E61.1 - Iron deficiency, E66.01 - Morbid (severe) obesity due to excess calories, Z00.01 - Encounter for general adult medical examination with abnormal findings Ferritin Today E53.8 - Deficiency of other specified B group vitamins, E55.9 - Vitamin D deficiency, unspecified, E61.1 - Iron deficiency, E66.01 - Morbid (severe) obesity due to excess calories, Z00.01 - Encounter for general adult medical examination with abnormal findings Medications: New tirzepatide (weight loss) (Zepbound) for 4 weeks 2.5 mg (0.5 mL) subcut QWEEK 2.5 mL 0RF 30 days E66.01 - Morbid (severe) obesity due to excess calories, M54.50 - Low back pain, unspecified
== END 2024-05-24 15:06 | disposition home or self-care (01) ==
LOC: HO.HMCC 13:45
PROVIDERS: PCP Internal Medicine; Visit Provider Internal Medicine
DX: Z00.00 Encounter for general adult medical examination without abnormal findings (principal); M54.50 Low back pain, unspecified; E66.01 Morbid (severe) obesity due to excess calories; Z68.41 Body mass index [BMI] 40.0-44.9, adult; E55.9 Vitamin D deficiency, unspecified; E61.1 Iron deficiency; E53.8 Deficiency of other specified B group vitamins

== ENCOUNTER → 2024-05-24 13:45 | Outpatient (BNVA) | payer OTHER, SELFPAY | PROVIDERS: PCP Internal Medicine; Visit Provider Internal Medicine | DX: Z00.01 Encounter for general adult medical examination with abnormal findings (principal); E66.01 Morbid (severe) obesity due to excess calories; Z68.41 Body mass index [BMI] 40.0-44.9, adult; E55.9 Vitamin D deficiency, unspecified; E53.8 Deficiency of other specified B group vitamins; M54.50 Low back pain, unspecified; Z71.3 Dietary counseling and surveillance | CPT/HCPCS: 96127; 99212; 99396 ==

== ENCOUNTER 2024-05-30 08:23 | Outpatient (REF) | payer OTHER, SELFPAY ==
[2024-05-30 10:21] LABS: Appearance Urine Cloudy; Color Urine Yellow; Glucose Urine UA Negative (Negative); Leukocyte Esterase Urine Negative (Negative); Nitrite Urine Negative (Negative); PH 5.5 (5.0-9.0); Specific Gravity - Urine 1.025 (1.005-1.025); UMIC TRIGGER UACC YES; Urine Blood Small (1+) (Negative); Urine Ketones Trace mg/dL (Negative); Urine Protein Negative (Neg-Trace)
[2024-05-30 10:42] LABS: MANUAL DIFF FLAG NO
[2024-05-30 10:50] LABS: Basophils Percent Auto 0.5 % (0-2); Eosinophils Absolute Auto 0.1 X10*3/uL (0.0-0.4); Eosinophils Percent Auto 2.9 % (0-4); Hematocrit 38.3 % (37.0-47.0); Hemoglobin 12.2 g/dl (12.0-16.0); Imm Gran Abs Auto 0.01 X10*3/uL (0.00-0.03); Imm Gran Pct Auto 0.3 % (0.0-0.4); Lymphocytes Absolute Auto 1.1 X10*3/uL (1.2-4.9); Lymphocytes Percent Auto 29.5 % (20-40); Mean Corpuscular HGB Conc 31.9 g/dl (31.0-35.0); Mean Corpuscular Hemoglobin 27.9 pg (27.0-33.0); Mean Corpuscular Volume 87.4 fL (80.0-98.0); Mean Platelet Volume 10.9 fL (9.4-12.3); Monocytes Absolute Auto 0.3 X10*3/uL (0.1-1.2); Neutrophils Absolute Auto 2.2 x10*3/uL (2.0-8.3); Neutrophils Percent Auto 57.8 % (45-73); Platelet Count 368 X10*3/uL (160-400); Red Blood Count 4.38 X10*6/uL (4.20-5.50); Red Cell Distribution Width 12.5 % (11.0-16.0); White Blood Count 3.8 X10*3/uL (4.8-10.8)
[2024-05-30 11:04] LABS: Bacteria Urine None Seen (None Seen); Calcium Oxalate Crystals Urine Present; Hyaline Casts Urine 0-2 /LPF (0-2); RBC Urine 0-2 /HPF (0-2); WBC Urine 0-5 /HPF (0-5)
[2024-05-30 11:32] LABS: Alanine Aminotransferase < 6 U/L (0-31); Albumin Level 3.3 g/dL (3.5-5.0); Anion Gap 9 (12-20); Aspartate Amino Transferase 18 U/L (5-31); Bilirubin Total 0.3 mg/dL (0.0-1.0); Blood Urea Nitrogen 11 mg/dL (9-16); Calcium 8.6 mg/dL (8.4-10.2); Carbon Dioxide 27 mmol/L (22-29); Chloride 108 mmol/L (96-108); Cholesterol 145 mg/dL (<200); Estimated Glomerular Filt Rate > 60; Glucose Fasting 88 mg/dL (60-99); HDL Cholesterol 49 mg/dL (>40); LDL Cholesterol Calculated 83 mg/dL (<100); Sodium 140 mmol/L (135-145); Total Protein 6.4 g/dL (6.5-8.0); Triglycerides 66 mg/dL (<150)
[2024-05-30 11:46] LABS: Alkaline Phosphatase 53 U/L (39-117)
[2024-05-30 11:51] LABS: Vitamin B12 798 pg/mL (200-900)
[2024-05-30 11:57] LABS: Ferritin 22 ng/mL (10-250); TSH reflex Free T4 1.02 uIU/mL (0.32-4.0)
[2024-06-03 15:57] LABS: Vitamin D 25-OH, D2 <4 ng/mL; Vitamin D 25-OH, D3 39 ng/mL; Vitamin D 25-OH, Total 39 ng/mL (30-100)
== END 2024-05-30 08:24 | disposition home or self-care (01) ==
LOC: HO.HMGCLDS 08:23
PROVIDERS: PCP Internal Medicine; Visit Provider Internal Medicine
DX: Z00.01 Encounter for general adult medical examination with abnormal findings (principal); E61.1 Iron deficiency; E53.8 Deficiency of other specified B group vitamins; E55.9 Vitamin D deficiency, unspecified; E66.01 Morbid (severe) obesity due to excess calories
CPT/HCPCS: 36415; 80053; 80061; 81001; 81003; 82306; 82607; 82728; 84443; 85025

== ENCOUNTER 2024-06-27 14:59 | Outpatient (AMB) | payer OTHER, SELFPAY ==
[2024-06-27 15:05] VITALS: BP 90/60; PULSE 95; RESP 16; TEMP 36.8; O2SAT 98; BMI 41.6
--- NOTE | 2024-06-27 15:05 | A.OFFPC_ITS ---
Vital Signs 06/27/24 15:05 Height 5 ft Weight 213 lb BMI 41.6 BP 90/60 Blood Pressure Location Lt brachial Position Sitting Respiration 16 Pulse 95 Pulse Source Pulse Oximeter Temp 98.2 F Temp Source Oral Pulse Oximetry (%) 98 Oxygen Delivery Method Room Air Intake Visit Reasons: weight management/meds Allergies latex [LATEX] Allergy (Unknown, Verified 06/27/24 15:10) skin breakdown Medication List - Last Reconciled 06/27/24 by Leo Ray MD tirzepatide (weight loss) (Zepbound) 2.5 mg (0.5 mL) subcut QWEEK 30 days Tobacco use date assessed: 06/27/24 Dental Screening Dental Screen Date: 05/24/24 HPI weight management/meds HPI Details History - The patient is a 48-year-old female pr esenting with obesity - There have been no reported side effec ts from the current medication regimen. - Previous weight management approaches have included pharmacotherapy and lifestyle modifications. - The patient has noted successful weigh t loss on the current dose of Zepbound 2.5 mg and reports regular engagement in physical exercise. - There are no recent changes in weight beyond the expectations set by the therapeutic plan. Problem List - Obesity Patient Instructions - Continue the current dose of Zepbound 2.5 mg for the next two months. - Refill medications as prescribed. - Return in three months for a follow-up and potential dose adjustment. - Undergo scheduled blood tests to monit or thyroid function and pancreas. - Continue regular physical exercise thr ee days a week. - Maintain a balanced diet. - Report any side effects or concerns im mediately. Review of Systems - General: No fever no chills - Neurological: No headaches no dizziness - Ear nose throat: No sore throat no hearing difficulty no ear pain - Cardiovascular: No syncope, no chest pain, no palpitations - Gastrointestinal: No nausea vomiting or diarrhea - Endocrine: No polyuria polydipsia no heat intolerance - Genitourinary: No dysuria , no blood in urine Physical Exam - General: No acute distress - HEENT: No acute findings - Neck: Supple - Respiratory system: Able to talk in f ull sentences, no audible wheeze - Cardiovascular: S1-S2 regular in rate and rhythm - Gastrointestinal: No pain - Extremities: No new findings - GIS COORDINATOR: Alert awake oriented x3 motor se nsory intact - Skin: Normal turgor PFSH Medical History Lumbar radiculitis Migraine headache B12 deficiency Iron deficiency Vitamin D deficiency Obesity Surgical History Status post breast reduction History of gastric bypass History of tubal ligation History of tonsillectomy Family History Father No problems noted. Mother HTN (hypertension) Arthritis Prediabetes Substance use disorder Maternal Grandmother Heart problem Lymphoma Arthritis Unknown family medical history Breast cancer Paternal Grandmother Diabetes mellitus Heart problem Unknown family medical history Paternal Grandfather Diabetes mellitus Heart problem Maternal Grandfather Unknown family medical history Sister No problems noted. Sister No problems noted. Daughter No problems noted. Brother No problems noted. Brother No problems noted. Brother No problems noted. Brother No problems noted. Social History Housing: House Alcohol intake: never Patient Tobacco Use Status: Never used Tobacco e-Cigarette/Vaping Use: Never Used service: No Current occupational status: employed Cognitive needs: No Hearing needs: No Vision needs: Yes Female Reproductive History Menstrual Age of Menarche: 14 Questionnaire Thrive Questionnaire Date Thrive assessed: 05/24/24 I am a: Patient What is your living situation today?: I choose not to answer this question Within the past 12 months, did the food you bought not last and you didn't have the money to get more?: I choose not to answer this question Within the past 12 months, did you worry whether your food would run out before you got money to buy more?: I choose not to answer this question Do you have trouble paying for medicines?: I choose not to answer this question Do you have trouble getting transportation to medical appointments?: I choose not to answer this question Do you have trouble paying your heating and electricity bill?: I choose not to answer this question Do you have trouble taking care of your child, family member or friend?: I choose not to answer this question Do you have trouble with day-to-day activities such as bathing, preparing meals, shopping, managing finances, etc.?: I choose not to answer this question Are you currently unemployed and looking for a job?: No Are you interested in more education?: No Please select the resources that you would like help with: None Currently or been in a relationship where the following occur: No concerns reported THRIVE Score: 0 MUSHTAQ-7 AMB Questionnaire MUSHTAQ-7 Date MUSHTAQ - 7 assessed: 05/24/24 Source: Developed by Drs. Fahad Beaulieu, Tawanna Talavera, Armen Javier and colleagues, with an educational klarissa from [employer]. Physical exam (Primary Care) Vital Signs: Last Vital Signs Temp 98.2 F 06/27/24 15:05 Pulse 95 06/27/24 15:05 Resp 16 06/27/24 15:05 BP 90/60 06/27/24 15:05 Pulse Ox 98 06/27/24 15:05 Oxygen Delivery Method Room Air 06/27/24 15:05 BMI result Body Mass Index 41.6 Tobacco/Smoking Status: Tobacco use Status Tobacco use date assessed 06/27/24 06/27/24 15:10 Patient Tobacco Use Status Never used Tobacco 06/27/24 15:10 e-Cigarette/Vaping Use Never Used 06/27/24 15:10 Thrive Assessment: Date of Thrive Assessment Date Thrive assessed 05/24/24 06/27/24 15:10 Currently or been in a relationship where the following occur: No concerns reported Coding Level of Care Code Est Pt Level 3 (45556) Diagnoses Obesity, morbid, BMI 40.0-49.9 E66.01 Assessment & Plan Assessment & Plan (1) Obesity, morbid, BMI 40.0-49.9: Code(s): E66.01 - Morbid (severe) obesity due to excess calories Category: Medical Plan History - The patient is a 48-year-old female presenting with obesity - There have been no reported side effects from the current medication regimen. - Previous weight management approaches have included pharmacotherapy and lifestyle modifications. - The patient has noted successful weight loss on the current dose of Zepbound 2.5 mg and reports regular engagement in physical exercise. - There are no recent changes in weight beyond the expectations set by the therapeutic plan. Problem List - Obesity Patient Instructions - Continue the current dose of Zepbound 2.5 mg for the next two months. - Refill medications as prescribed. - Return in three months for a follow-up and potential dose adjustment. - Undergo scheduled blood tests to monitor thyroid function and pancreas. - Continue regular physical exercise three days a week. - Maintain a balanced diet. - Report any side effects or concerns immediately. Orders: Orders Amylase Today E66.01 - Morbid (severe) obesity due to excess calories TSH reflex Free T4 Today E66.01 - Morbid (severe) obesity due to excess calories Complete Blood Count Auto Diff Today E66.01 - Morbid (severe) obesity due to excess calories Comprehensive Met. Panel Today E66.01 - Morbid (severe) obesity due to excess calories Lipase Today E66.01 - Morbid (severe) obesity due to excess calories Medications: Changed From tirzepatide (weight loss) (Zepbound) for 4 weeks 2.5 mg (0.5 mL) subcut QWEEK 30 days 2.5 mL 0RF E66.01 - Morbid (severe) obesity due to excess calories, M54.50 - Low back pain, unspecified To tirzepatide (weight loss) (Zepbound) for 4 weeks 2.5 mg (0.5 mL) subcut QWEEK 6.5 mL 0RF 90 days E66.01 - Morbid (severe) obesity due to excess calories, M54.50 - Low back pain, unspecified
--- OUTSIDE RECORDS SUMMARY | 2024-06-27 17:54 | XMS_ITS | Clinical Summary ---
Author Organization [facility] Address [address] [place] [address] Phone Care Team Providers Care Motor Vehicle Inspector Name Role Phone Leo Churchill MD Primary Care Provider [phone] Allergies Active Allergy Reactions Criticality Noted Date Comments Iopamidol Rash 05/03/2024 Latex Rash High 11/19/2023 Medications polyethylene glycol (Golytely) 236-22.74-6.74 -5.86 gram solution Take 4L by mouth once for one dose. May substitue any PEG. Starting at 6PM the night before your procedure drink 1 8oz glasses at your own pace until you complete half of the gallon. Finish 2nd half of the gallon 5 hours before your procedure. 4000 mL 5 Active bisacodyL (DULCOLAX) 5 mg EC tablet Take 2 tablets by mouth right before beginning bowel prep. See instructions provided by the office 2 tablet 5 Active Encounters Date Type Department Care Team Description 05/03/2024 7:42 AM EST Anesthesia Event [facility] Endoscopy [address] [place] [address] Umu Kahn MD Steele, Matthew G, KAE 05/03/2024 6:45 AM EST - 05/03/2024 11:59 PM EST Hospital Encounter [facility] [address] [place] [address] Kilo Lua MD Steele, Matthew G, Trey Joiner MD Colon cancer screening Discharge Disposition: Home or Self Care 04/26/2024 Telephone Gastroenterology - [place] [address] [facility] [address] [place] [address] Jimy Segundo DO SPECIAL PROCEDURE from Last 3 Months Surgical History Surgery Date Site/Laterality Comments GASTRIC BYPASS ESOPHAGOGASTRODUODENOSCOPY BREAST REDUCTION Medical History Medical History Date Comments Migraine Bronchitis Pneumonia Social History Tobacco Use Types Packs/Day Years Used Date Smoking Tobacco: Never Smokeless Tobacco: Never Tobacco Cessation:Counseling Given: Not Answered Alcohol Use Standard Drinks/Week Comments Never 0 (1 standard drink = 0.6 oz pur e alcohol) Interpersonal Safety Answer Date Record ed Physical Abuse 05/03/2024 Verbal Abuse 05/03/2024 Comments No Sex and Gender Information Value Date Recorded Sex Assigned at Female 05/03/2024 6:42 AM EST Legal Sex Female 5:08 AM EST Gender Identity Female 05/03/2024 6:42 AM EST Sexual Orientation Straight 05/03/2024 6: 42 AM EST Obstetrics History Last Filed Vital Signs Vital Sign Reading Time Taken Comments Blood Pressure 115/77 05/03/2024 8:17 AM EST Pulse 64 05/03/2024 8:17 AM EST Temperature 36.2 ??C (97.1 ??F) 05/03/2024 7:08 AM ES T Respiratory Rate 20 05/03/2024 8:17 AM EST Oxygen Saturation 100% 05/03/2024 8:17 AM EST Inhaled Oxygen Concentration - - Weight 95.3 kg (210 lb) 05/03/2024 7:08 AM EST Height 152.4 cm (5') 05/03/2024 7:08 AM EST Body Mass Index 41.01 05/03/2024 7:08 AM EST Plan of Treatment Health Maintenance Due Date Last Done Comments Cervical Cancer Screening: Pap Smear 10/28/1996 DTaP,Tdap,and Td Vaccines (3 - Td or Tdap) 03/11/2019 03/11/2009, 11/30/1996 Depression Screening 02/08/2022 HIV Screening 02/08/2022 Hepatitis C Screening 02/08/2022 Social Influencers of Health Screening 02/08/2022 COVID-19 Vaccine ( season) 2023 02/26/2022, 02/19/2021, 06/28/2020, Additional history exists Influenza Vaccine (Season Ended) 2024 02/04/2023, 12/05/2021, 11/29/2020, Additional history exists Breast Cancer Screening 10/26/2025 10/27/19 24, 04/23/2022, 04/23/2021, Additional history exists Colorectal Cancer Screening: Colonoscopy 05/03/2034 05/03/2024 MMR Vaccines Completed 09/01/1989, 02/10/1977 Hepatitis B Vaccines Completed 12/14/2016, 08/14/2016, 07/15/2016, Additional history exists HIB Vaccines Aged Out [...] patient's age to complete this topic Meningococcal B Vaccine Aged Out No l onger eligible based on patient's age to complete [...] Procedure Name Priority Date/Time Associated Diagnosis Comments COLONOSCOPY Routine 05/03/2024 7:56 AM EST Colon cancer screening DEMETRI SCREENING DIGITAL Routine 10/27/2023 11:25 AM EDT Encounter for screening mammogram for malignant neoplasm of breast from Last 3 Months or Most Recently Relevant to Health Maintenance Results * COLONOSCOPY Anesthesia - MAC; [facility] ENDOSCOPY (05/03/2024 7:56 AM EST) Anatomical Region Laterality Modality Endoscopy 05/03/2024 7:44 AM EST Impressions 05/03/2024 7:58 AM EST - The entire examined colon is normal on direct and ? retroflexion views. ? - No specimens collected. Recommendation: ?- Discharge patient to home. ? - Repeat colonoscopy in 10 years for screening ? purposes. Narrative 05/03/2024 7:58 AM EST [facility] GI Patient Name: Lauren Cartagena Procedure Date: 05/03/2024 7:44 AM Date of : 1975 Age: 48 Gender: Female Note Status: Finalized Attending MD: Kilo Lua MD, Procedure Date No Time: 05/03/2024 Procedure: ? Colonoscopy Indications: ? Screening for colorectal malignant neoplasm Providers: ? Kilo Lua MD Referring MD: ?Kilo Lua MD Medicines: ? Monitored Anesthesia Care Complications: ? No immediate complications. Estimated Blood Loss: ? Estimated blood loss: none. Procedure: ? Pre-Anesthesia Assessment: ? - Prior to the procedure, a History and Physical was ? performed, and patient medications and allergies were ? reviewed. The patient is competent. The risks and ? benefits of the procedure and the sedation options and ? risks were discussed with the patient. All questions ? were answered and informed consent was obtained. ? Patient identification and proposed procedure were ? verified by the physician, the nurse, the package winder ? and the extracorporeal technician in the pre-procedure area in the ? endoscopy suite. Mental Status Examination: alert and ? oriented. Airway Examination: normal oropharyngeal ? airway and neck mobility. Respiratory Examination: ? clear to auscultation. CV Examination: normal. ? Prophylactic Antibiotics: The patient does not require ? prophylactic antibiotics. Prior Anticoagulants: The ? patient has taken no anticoagulant or antiplatelet ? agents. ASA Grade Assessment: III - A patient with ? severe systemic disease. After reviewing the risks and ? benefits, the patient was deemed in satisfactory ? condition to undergo the procedure. The anesthesia ? plan was to use monitored anesthesia care (MAC). ? Immediately prior to administration of medications, ? the patient was re-assessed for adequacy to receive ? sedatives. The heart rate, respiratory rate, oxygen ? saturations, blood pressure, adequacy of pulmonary ? ventilation, and response to care were monitored ? throughout the procedure. The physical status of the ? patient was re-assessed after the procedure. ? After I obtained informed consent, the scope was ? passed under direct vision. Throughout the procedure, ? the patient's blood pressure, pulse, and oxygen ? saturations were monitored continuously. The ? Colonoscope was introduced through the anus and ? advanced to the cecum, identified by appendiceal ? orifice and ileocecal valve. The colonoscopy was ? performed without difficulty. The patient tolerated ? the procedure well. The quality of the bowel ? preparation was good. Findings: ?The perianal and digital rectal examinations were ? normal. ? The entire examined colon appeared normal on direct ? and retroflexion views. Procedure Code(s): ? --- Professional --- ? G0121, Colorectal cancer screening; colonoscopy on ? individual not meeting criteria for high risk Diagnosis Code(s): ? --- Professional --- ? Z12.11, Encounter for screening for malignant neoplasm ? of colon CPT copyright 2020 [employer]. All rights reserved. The codes documented in this report are preliminary and upon buttoner review may be revised to meet current compliance requirements. Kilo Lua MD 05/03/2024 7:58:45 AM This report has been signed electronically.Kilo Lua MD Number of Addenda: 0 Note Initiated On: 05/03/2024 7:44 AM Scope Withdrawal Time: 0 hours 6 minutes 57 seconds Scope In: 7:49:27 AM Scope Out: 7:58:29 AM ? Endoscopy Department at [facility] - [address] [place] [address], ? [place] [address] Procedure Note Kilo Lua MD - 05/03/2024 [facility] GI Patient Name: Lauren Cartagena Procedure Date: 05/03/2024 7:44 AM Date of : 1975 Age: 48 Gender: Female Note Status: Finalized Attending MD: Kilo Lua MD, Procedure Date No Time: 05/03/2024 Procedure: Colonoscopy Indications: Screening for colorectal malignant neoplasm Providers: Kilo Lua MD Referring MD: Kilo Lua MD Medicines: Monitored Anesthesia Care Complications: No immediate complications. Estimated Blood Loss: Estimated blood loss: none. Procedure: Pre-Anesthesia Assessment: - Prior to the procedure, a History and Physicalwas performed, and patient medications and allergieswere reviewed. The patient is competent. The risks and benefits of the procedure and the sedation optionsand risks were discussed with the patient. Allquestions were answered and informed consent was obtained. Patient identification and proposed procedure were verified by the physician, the nurse, theanesthetist and the extracorporeal technician in the pre-procedure area in the endoscopy suite. Mental Status Examination: alertand oriented. Airway Examination: normal oropharyngeal airway and neck mobility. Respiratory Examination: clear to auscultation. CV Examination: normal. Prophylactic Antibiotics: The patient does notrequire prophylactic antibiotics. Prior Anticoagulants: The patient has taken no anticoagulant or antiplatelet agents. ASA Grade Assessment: III - A patient with severe systemic disease. After reviewing the risksand benefits, the patient was deemed in satisfactory condition to undergo the procedure. The anesthesia plan was to use monitored anesthesia care (MAC). Immediately prior to administration of medications, the patient was re-assessed for adequacy to receive sedatives. The heart rate, respiratory rate, oxygen saturations, blood pressure, adequacy of pulmonary ventilation, and response to care were monitored throughout the procedure. The physical status ofthe patient was re-assessed after the procedure. After I obtained informed consent, the scope was passed under direct vision. Throughout theprocedure, the patient's blood pressure, pulse, and oxygen saturations were monitored continuously. The Colonoscope was introduced through the anus and advanced to the cecum, identified by appendiceal orifice and ileocecal valve. The colonoscopy was performed without difficulty. The patient tolerated the procedure well. The quality of the bowel preparation was good. Findings: The perianal and digital rectal examinations were normal. The entire examined colon appeared normal on direct and retroflexion views. Procedure Code(s): --- Professional --- G0121, Colorectal cancer screening; colonoscopy on individual not meeting criteria for high risk Diagnosis Code(s): --- Professional --- Z12.11, Encounter for screening for malignantneoplasm of colon CPT copyright 2020 [employer]. All rights reserved. The codes documented in this report are preliminary and upon buttoner reviewmay be revised to meet current compliance requirements. Kilo Lua MD 05/03/2024 7:58:45 AM This report has been signed electronically.Kilo Lua MD Number of Addenda: 0 Note Initiated On: 05/03/2024 7:44 AM Scope Withdrawal Time: 0 hours 6 minutes 57 seconds Scope In: 7:49:27 AM Scope Out: 7:58:29 AM Endoscopy Department at [facility] - [address] [place] [id number] IMPRESSION: - The entire examined colon is normal on direct and retroflexion views. - No specimens collected. Recommendation: - Discharge patient to home. - Repeat colonoscopy in 10 years for screening purposes. us Kilo Lua MD GI~PROCEDURE ORDERABLES Fin al Result * DEMETRI SCREENING DIGITAL (10/27/2023 11:25 AM EDT) Anatomical Region Laterality Modality Mammography 10/26/2023 2:34 PM EDT Narrative 10/27/2023 11:25 AM EDT [facility] Diagnostic Imaging Department [address] [place] [id number] [id number] Patient: ??LAUREN CARTAGENA ?/Age/Sex: 1975 - 47 - F Unit#: ??[id number] ? Location/Status: ??SPDIMAM/REG CLI ? Mnemonic/Ordering Site: ??DIGSC/SPMAM Ordering Physician: ??LEO CHURCHILL MD [facility] Screening Digital - 10/26/23 - 1452 Report Status:Signed EXAM: [facility] Screening Digital EXAM DATE AND TIME: 10/26/2023 2:53 PM HISTORY: ??Screening. Reduction mammoplasty in 2006. Maternal grandmother had breast carcinoma. COMPARISON: ??04/23/22, 04/22/21, 04/17/20 TECHNIQUE: Bilateral digital breast tomosynthesis was performed in the CC and MLO projections. Computer aided detection with [employer] 3D 3.1 was employed. TISSUE DENSITY: b. [...] Procedure Note Lisa Elias MD - 12/22/2023 [facility] Diagnostic Imaging Department [address] [place] [address] Patient: LAUREN CARTAGENA /Age/Sex: 1975 - 47 - F Unit#: [id number] Location/Status: SPDIMAM/REG CLI Mnemonic/Ordering Site: [facility] Ordering Physician: LEO CHURCHILL MD [facility] Screening Digital - 10/26/23 - 1452 Report Status:Signed EXAM: [facility] Screening Digital EXAM DATE AND TIME: 10/26/2023 2:53 PM HISTORY: Screening. Reduction mammoplasty in 2006. Maternal grandmotherhad breast carcinoma. COMPARISON: 04/23/22, 04/22/21, 04/17/20 TECHNIQUE: Bilateral digital breast tomosynthesis was performed in the CCand MLO projections. Computer aided detection with [employer] 3D 3.1was employed. TISSUE DENSITY: b. There [...] or Most Recently Relevant to Health Maintenance Insurance [facility] Care Teams Motor Vehicle Inspector Relationship Specialty Start Date End Date Leo Churchill MD [address] [place] [address] PCP - General Internal Medicine 02/12/17
--- OUTSIDE RECORDS SUMMARY | 2024-06-27 17:54 | XMS_ITS | Encounter Summary ---
Author Organization [facility] Address [address] [facility] [address] [place] [address] Care Team Providers Care Legal Director Name Role Phone Unavailable Primary Care Provider [...]
--- OUTSIDE RECORDS SUMMARY | 2024-06-27 17:54 | XMS_ITS | Clinical Summary ---
Author Organization [facility] Address [address] [facility] [address] [place] [address] Care Team Providers Care Residential Leasing Manager Name Role Phone Unavailable Primary Care [...]
== END 2024-06-27 15:17 | disposition home or self-care (01) ==
LOC: HO.HMCC 15:00
PROVIDERS: PCP Internal Medicine; Visit Provider Internal Medicine
DX: E66.01 Morbid (severe) obesity due to excess calories (principal); Z68.41 Body mass index [BMI] 40.0-44.9, adult

== ENCOUNTER → 2024-06-27 14:59 | Outpatient (BNVA) | payer OTHER, SELFPAY | PROVIDERS: PCP Internal Medicine; Visit Provider Internal Medicine | DX: E66.01 Morbid (severe) obesity due to excess calories (principal); Z68.41 Body mass index [BMI] 40.0-44.9, adult | CPT/HCPCS: 99212 ==

== ENCOUNTER → 2024-08-08 13:01 | Outpatient (BNVA) | payer OTHER, SELFPAY | PROVIDERS: PCP Internal Medicine; Visit Provider Internal Medicine | DX: Z13.89 Encounter for screening for other disorder (principal) ==

== ENCOUNTER 2024-09-29 14:40 | Outpatient (REF) | payer OTHER, SELFPAY ==
[2024-09-29 15:57] LABS: MANUAL DIFF FLAG NO
[2024-09-29 16:05] LABS: Hematocrit 39.0 % (37.0-47.0); Hemoglobin 12.6 g/dl (12.0-16.0); Imm Gran Abs Auto 0.04 X10*3/uL (0.00-0.03); Imm Gran Pct Auto 0.5 % (0.0-0.4); Lymphocytes Absolute Auto 1.3 X10*3/uL (1.2-4.9); Mean Corpuscular HGB Conc 32.3 g/dl (31.0-35.0); Mean Corpuscular Hemoglobin 27.9 pg (27.0-33.0); Mean Corpuscular Volume 86.3 fL (80.0-98.0); NRBC Abs Auto 0.000 X10*3/uL (0.0-0.012); NRBC Pct Auto 0.0 /100WBC (0.0-0.2); Platelet Count 435 X10*3/uL (160-400); Red Blood Count 4.52 X10*6/uL (4.20-5.50); White Blood Count 8.4 X10*3/uL (4.8-10.8)
[2024-09-29 16:23] LABS: Alanine Aminotransferase 7 U/L (0-31); Albumin Level 3.8 g/dL (3.5-5.0); Alkaline Phosphatase 55 U/L (39-117); Amylase 69 U/L (28-100); Anion Gap 9 (12-20); Aspartate Amino Transferase 20 U/L (5-31); Blood Urea Nitrogen 17 mg/dL (9-16); Calcium 8.4 mg/dL (8.4-10.2); Carbon Dioxide 27 mmol/L (22-29); Chloride 109 mmol/L (96-108); Estimated Glomerular Filt Rate > 60; Lipase 14 U/L (8-78); Potassium 4.0 mmol/L (3.3-5.1); Sodium 141 mmol/L (135-145); Total Protein 6.6 g/dL (6.5-8.0)
== END 2024-09-29 14:41 | disposition home or self-care (01) ==
LOC: HO.HMGCLDS 14:40
PROVIDERS: PCP Internal Medicine; Visit Provider Internal Medicine
DX: E66.01 Morbid (severe) obesity due to excess calories (principal); K21.9 Gastro-esophageal reflux disease without esophagitis; E55.9 Vitamin D deficiency, unspecified; D50.9 Iron deficiency anemia, unspecified; Z98.84 Bariatric surgery status; Z68.39 Body mass index [BMI] 39.0-39.9, adult
CPT/HCPCS: 36415; 80053; 82150; 83690; 84443; 85025; 96127; 99212

== ENCOUNTER 2024-09-29 14:40 | Outpatient (AMB) | payer OTHER, SELFPAY ==
[2024-09-29 14:43] VITALS: BP 122/78; PULSE 83; O2SAT 98; BMI 39.8
--- NOTE | 2024-09-29 14:43 | A.OFFPC_ITS ---
Vital Signs 09/29/24 14:43 Height 5 ft Weight 204 lb BMI 39.8 BP 122/78 Blood Pressure Location Lt brachial Position Sitting Pulse 83 Pulse Source Pulse Oximeter Pulse Oximetry (%) 98 Intake Visit Reasons: 3m follow up Allergies latex (LATEX) Allergy (Unknown, Verified 09/29/24 14:44) skin breakdown Medication List - Last Reconciled 09/29/24 by Leo Ray MD Zepbound (tirzepatide (weight loss)) 5 mg (0.5 mL) subcut QWEEK 90 days NS Tobacco use date assessed: 06/27/24 Dental Screening Dental Screen Date: 05/24/24 HPI 3m follow up HPI Details Medical History - History of gastric bypass surgery - Recent history of weight loss on Zepbo und History of Present Illness - The patient is a 48-year-old female pr esenting with gastrointestinal issues involving increased gas. - She reports the onset of symptoms sinc e starting injections prescribed for weight loss. - The weight loss medication has been ef fective; the patient lost from 220 lbs in May to 204 lbs over three months. - The patient denies nausea and dizzines s associated with the medication but describes significant bloating and increased burping, particularly aggravated by tight clothing. - The patient uses antacids, initially i n the morning only but has now increased to twice a day due to symptoms. - She expresses concern due to past leopoldo naresh bypass surgery and wishes to ensure there are no complications. - Reports occasional nausea associated w ith vitamin intake, specifically B12 and B complex, occurring roughly 30 minutes to an hour after ingestion. Surgical History: - Gastric bypass surgery Social History: - Actively engaged in weight management, evidenced by efforts to lose weight since May. - Reports losing weight slowly but progr essively and is actively managing her nutrition and medication regimen. Problem List - Post-bypass gastrointestinal symptoms - Increased intestinal gas - Weight management post-bariatric surge ry Patient Instructions - Continue if tolerable, Zepbound 5 mg weekly - Proceed with scheduled blood test befo re leaving the clinic. - Schedule a follow-up appointment in tw o months. - Consult a telephone service representative for an en doscopy due to concerns post-gastric bypass. Review of Systemss. - General: No fever no chills - Neurological: No headaches no dizziness - Ear nose throat: No sore throat no hearing difficulty no ear pain - Cardiovascular: No syncope, no chest pain, no palpitations - Gastrointestinal: No vomiting or diarrhea - Endocrine: No polyuria polydipsia no heat intolerance - Genitourinary: No dysuria , no blood in urine Physical Exam General: No acute distress HEENT: No acute findings Neck: Supple Respiratory system: Able to talk in full sentences, no audible wheeze Cardiovascular: S1-S2 regular in rate and rhythm Gastrointestinal: No pain, with palpation, BS + Extremities: No new findings 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 Mother HTN (hypertension) Arthritis Prediabetes Substance use disorder Maternal Grandmother Heart problem Lymphoma Arthritis Unknown family medical history Breast cancer Paternal Grandmother Diabetes mellitus Heart problem Unknown family medical history Paternal Grandfather Diabetes mellitus Heart problem Maternal Grandfather Unknown family medical history Sister No problems noted. Sister No problems noted. Daughter No problems noted. Brother No problems noted. Brother No problems noted. Brother No problems noted. Brother No problems noted. Social History Housing: House Alcohol intake: never Patient Tobacco Use Status: Never used Tobacco e-Cigarette/Vaping Use: Never Used service: No Current occupational status: employed Cognitive needs: No Hearing needs: No Vision needs: Yes Female Reproductive History Menstrual Age of Menarche: 14 Questionnaire PHQ-9 Over the last 2 weeks, how often have you been bothered by any of the following problems? 1. Little interest or pleasure in doing things: not at all 2. Feeling down, depressed, or hopeless: not at all 3. Trouble falling or staying asleep, or sleeping too much: not at all 4. Feeling tired or having little energy: not at all 5. Poor appetite or overeating: not at all 6. Feeling bad about yourself - or that you are a failure or have let yourself or your family down: not at all 7. Trouble concentrating on things, such as reading the newspaper or watching television: not at all 8. Moving or speaking so slowly that other people could have noticed. Or the opposite - being so fidgety or restless that you have been moving around a lot more than usual: not at all 9. Thoughts that you would be better off or of hurting yourself in some way: not at all Total score: 0 Depression Screening Interpretation: Negative Depression Screening Done: Yes 96346 - PHQ-9 Billing: Yes Source: Developed by Drs. Fahad Beaulieu, Tawanna Talavera, Armen Javier and colleagues, with an educational klarissa from [employer] Thrive Questionnaire Date Thrive assessed: 09/29/24 I am a: Patient What is your living situation today?: I choose not to answer this question Within the past 12 months, did the food you bought not last and you didn't have the money to get more?: I choose not to answer this question Within the past 12 months, did you worry whether your food would run out before you got money to buy more?: I choose not to answer this question Do you have trouble paying for medicines?: I choose not to answer this question Do you have trouble getting transportation to medical appointments?: I choose not to answer this question Do you have trouble paying your heating and electricity bill?: I choose not to answer this question Do you have trouble taking care of your child, family member or friend?: I choose not to answer this question Do you have trouble with day-to-day activities such as bathing, preparing meals, shopping, managing finances, etc.?: I choose not to answer this question Are you currently unemployed and looking for a job?: No Are you interested in more education?: No Please select the resources that you would like help with: None Currently or been in a relationship where the following occur: No concerns reported THRIVE Score: 0 AUDIT C Alcohol Use Questionnaire (AUDIT-C) 1. How often do you have a drink containing alcohol?: Never 3. How often do you have six or more drinks on one occasion?: Never Total Score: 0 Score Reviewed/Action Taken: Yes MUSHTAQ-7 AMB Questionnaire MUSHTAQ-7 Date MUSHTAQ - 7 assessed: 05/24/24 Source: Developed by Drs. Fahad Beaulieu, Tawanna Talavera, Armen Javier and colleagues, with an educational klarissa from [employer] Physical exam (Primary Care) Vital Signs: Last Vital Signs Pulse 83 09/29/24 14:43 BP 122/78 09/29/24 14:43 Pulse Ox 98 09/29/24 14:43 BMI result Body Mass Index 39.8 Tobacco/Smoking Status: Tobacco use Status Tobacco use date assessed 06/27/24 09/29/24 14:43 Patient Tobacco Use Status Never used Tobacco 09/29/24 14:43 e-Cigarette/Vaping Use Never Used 09/29/24 14:43 PHQ-9: PHQ-9 Score PHQ-9: Total score 0 09/29/24 14:47 Depression Screening Interpretation: Negative Thrive Assessment: Date of Thrive Assessment Date Thrive assessed 09/29/24 09/29/24 14:47 Currently or been in a relationship where the following occur: No concerns reported Coding Level of Care Code Est Pt Level 3 (99893) Diagnoses History of gastric bypass Z98.84 Excessive gastroesophageal reflux K21.9 Obesity, morbid, BMI 40.0-49.9 E66.01 Additional Codes PHQ-9 - 68929 - PHQ-9 Billing: Yes ([id number]) Assessment & Plan Assessment & Plan (1) History of gastric bypass: Comment: 2006 Code(s): Z98.84 - Bariatric surgery status Category: Surgical (2) Excessive gastroesophageal reflux: Code(s): K21.9 - Gastro-esophageal reflux disease without esophagitis Category: Medical (3) Obesity, morbid, BMI 40.0-49.9: Code(s): E66.01 - Morbid (severe) obesity due to excess calories Category: Medical Plan Medical History - History of gastric bypass surgery - Recent history of weight loss on Zepbound History of Present Illness - The patient is a 48-year-old female presenting with gastrointestinal issues involving increased gas. - She reports the onset of symptoms since starting injections prescribed for weight loss. - The weight loss medication has been effective; the patient lost from 220 lbs in May to 204 lbs over three months. - The patient denies nausea and dizziness associated with the medication but describes significant bloating and increased burping, particularly aggravated by tight clothing. - The patient uses antacids, initially in the morning only but has now increased to twice a day due to symptoms. - She expresses concern due to past gastric bypass surgery and wishes to ensure there are no complications. - Reports occasional nausea associated with vitamin intake, specifically B12 and B complex, occurring roughly 30 minutes to an hour after ingestion. Surgical History: - Gastric bypass surgery Social History: - Actively engaged in weight management, evidenced by efforts to lose weight since May. - Reports losing weight slowly but progressively and is actively managing her nutrition and medication regimen. Problem List - Post-bypass gastrointestinal symptoms - Increased intestinal gas - Weight management post-bariatric surgery Patient Instructions - Continue if tolerable, Zepbound 5 mg weekly - Proceed with scheduled blood test before leaving the clinic. - Schedule a follow-up appointment in two months. - Consult a telephone service representative for an endoscopy due to concerns post-gastric bypass. Orders: Referrals Gastroenterology Referral K21.9 - Gastro-esophageal reflux disease without esophagitis, Z98.84 - Bariatric surgery status
--- OUTSIDE RECORDS SUMMARY | 2024-09-29 14:43 | XMS_ITS | Clinical Summary ---
Author Organization [facility] Address [address] [place] [address] Care Team Providers Care Student Specialist Name Role Phone Leo Ray MD Primary Care Provider Unavailabl e Allergies Active Allergy Reactions Severity Noted Date Comments Latex 11/19/2023 Medications No known medications Active Problems Problem Noted Date Pannus, abdominal 03/19/2017 Intertrigo 03/19/2017 Family History Medical History Relation Name Comments CA Breast Maternal Grandmother Cancer, Other Maternal Grandmother Hypertension Maternal Grandmother Asthma Mother Diabetes Mother Hypertension Mother AR Paternal Grandmother Relation Name Status Comments Maternal Grandmother Alive Mother Alive Paternal Grandmother Social History Tobacco Use Types Packs/Day Years Used Date Smoking Tobacco: Never Smokeless Tobacco: Never Alcohol Use Standard Drinks/Week Comments No 0 (1 standard drink = 0.6 oz pur e alcohol) Sex Assigned at Date Recorded Not on file Last Filed Vital Signs Vital Sign Reading Time Taken Comments Blood Pressure 122/88 03/19/2017 9:43 AM EST Pulse 80 03/19/2017 9:43 AM EST Temperature 36.2 C (97.2 F) 03/19/2017 9:43 AM EST Respiratory Rate 14 03/19/2017 9:43 AM EST Oxygen Saturation - - Inhaled Oxygen Concentration - - Weight 84.8 kg (187 lb) 03/19/2017 9:43 AM EST Height 152.4 cm (5') 03/19/2017 9:43 AM EST Body Mass Index 36.52 03/19/2017 9:43 AM EST Plan of Treatment Health Maintenance Due Date Last Done Comments Covid-19 Vaccine (#1) 04/30/1976 TOBACCO CHECK/ADVISE 10/28/1993 DTAP/TDAP/TD (1 - Tdap) 10/28/1994 CHOLESTEROL SCREENING 1995 CERVICAL CANCER SCREENING 10/28/1996 BASELINE HEALTH EXAM 40-64 2015 MAMMOGRAM 2015 BMI CHECK/ADVISE 03/08/2024 DEPRESSION SCREENING/FOLLOWUP 03/08/2024 SOCIAL NEEDS SCREENING 03/08/2024 INFLUENZA (#1) 2024 PNEUMOCOCCAL VACCINE FOR HIGH RISK PATIENTS (#1) 10/28 Care Teams Student Specialist Relationship Specialty Start Date End Date Leo Ray MD PCP - General Internal Medicine 02/12/17
--- OUTSIDE RECORDS SUMMARY | 2024-09-29 14:43 | XMS_ITS | Clinical Summary ---
Author Organization [facility] Address [address] [place] [address] Phone Care Team Providers Care Administrative Director Name Role Phone Leo Churchill MD Primary Care Provider [phone] Allergies Active Allergy Reactions Criticality Noted Date [...] by the office 2 tablet 5 Active Surgical History Surgery Date Site/Laterality Comments GASTRIC [...] 64 05/03/2024 8:17 AM EST Temperature 36.2 C (97.1 F) 05/03/2024 7:08 AM EST Respiratory Rate 20 05/03/2024 8:17 AM EST [...] - Td or Tdap) 03/11/2019 03/11/2009, 11/30/1996 HIV Screening 02/08/2022 Hepatitis C Screening 02/08/2022 Social Influencers of Health Screening 02/08/2022 COVID-19 Vaccine ( season) 2023 02/26/2022, 02/19/2021, 06/28/2020, Additional history exists Depression Screening 03/08/2024 Influenza Vaccine (#1) 2024 , 12/05/2021, 11/29/2020, Additional history exists Breast Cancer [...] 5 Years) and At-Risk Patients (6 to 49 Years) Aged Out No longer eligible based [...] Maintenance Results * COLONOSCOPY Anesthesia - MAC; [facility] ENDOSCOPY (05/03/2024 7:56 AM EST) Anatomical Region Laterality Modality Endoscopy 05/03/2024 7:44 AM EST Impressions 05/03/2024 7:58 AM EST - The entire examined colon is normal on direct and retroflexion views. - No specimens collected. Recommendation: - Discharge patient to home. - Repeat colonoscopy in 10 years for screening purposes. Narrative 05/03/2024 7:58 AM EST [facility] GI Patient Name: Lauren Jeffery Procedure Date: 05/03/2024 7:44 AM Date of [...] the procedure, a History and Physical was performed, and patient medications and allergies were reviewed. The patient is competent. The risks and benefits of the procedure and the sedation options and risks were discussed with the patient. All questions were answered and informed consent was obtained. Patient identification and proposed procedure were verified by the physician, the nurse, the pals specialist and the industrial waste treatment technician in the pre-procedure area in the endoscopy suite. Mental Status Examination: alert and oriented. Airway Examination: normal oropharyngeal airway and neck mobility. Respiratory Examination: clear to auscultation. CV Examination: normal. Prophylactic Antibiotics: The patient does not require prophylactic antibiotics. Prior Anticoagulants: The patient has taken no anticoagulant or antiplatelet agents. ASA Grade Assessment: III - A patient with severe systemic disease. After reviewing the risks and benefits, the patient was deemed in satisfactory condition to undergo the procedure. The anesthesia plan was to use monitored anesthesia care (MAC). Immediately prior to administration of medications, the patient was re-assessed for adequacy to receive sedatives. The heart rate, respiratory rate, oxygen saturations, blood pressure, adequacy of pulmonary ventilation, and response to care were monitored throughout the procedure. The physical status of the patient was re-assessed after the procedure. After I obtained informed consent, the scope was passed under direct vision. Throughout the procedure, the patient's blood pressure, pulse, and oxygen [...] Professional --- Z12.11, Encounter for screening for malignant neoplasm of colon CPT copyright 2020 [employer]. All rights reserved. The codes documented in this report are preliminary and upon hotel night auditor review may be revised to meet current compliance requirements. Kilo Lua MD 05/03/2024 7:58:45 AM This report has been signed electronically.Kilo Lua MD Number of Addenda: 0 Note Initiated On: 05/03/2024 7:44 AM Scope Withdrawal Time: 0 hours 6 minutes 57 seconds Scope In: 7:49:27 AM Scope Out: 7:58:29 AM Endoscopy Department at [facility] - [address] [place] [id number] Procedure Note Kilo Lua MD - 05/03/2024 [facility] GI Patient Name: Lauren Jeffery Procedure Date: 05/03/2024 7:44 AM Date of [...] the physician, the nurse, theanesthetist and the industrial waste treatment technician in the pre-procedure area in the [...] for malignantneoplasm of colon CPT copyright 2020 [employer]. All rights reserved. The codes documented in this report are preliminary and upon hotel night auditor reviewmay be revised to meet current compliance requirements. Kilo Lua MD 05/03/2024 7:58:45 AM This report has been signed electronically.Kilo Lua MD Number of Addenda: 0 Note Initiated On: 05/03/2024 7:44 AM Scope Withdrawal Time: 0 hours 6 minutes 57 seconds Scope In: 7:49:27 AM Scope Out: 7:58:29 AM Endoscopy Department at [facility] - [address] [place] [phone] IMPRESSION: - The entire examined colon is normal on direct and retroflexion views. - No specimens collected. Recommendation: - Discharge patient to home. - Repeat colonoscopy in 10 years for screening purposes. us Kilo Lua MD GI~PROCEDURE ORDERABLES Fin al Result * [facility] SCREENING DIGITAL (10/27/2023 11:25 AM EDT) Anatomical Region Laterality Modality Mammography 10/26/2023 2:34 PM EDT Narrative 10/27/2023 11:25 AM EDT [facility] Diagnostic Imaging Department [address] [place] [id number] Patient: LAUREN JEFFERY /Age/Sex: 1975 - 47 - F Unit#: [id number] Location/Status: SPDIMAM/REG CLI Mnemonic/Ordering Site: DIGND/[facility] Ordering Physician: LEO CHURCHILL MD [facility] Screening Digital - 10/26/23 - 1452 Report Status:Signed EXAM: [facility] Screening Digital EXAM DATE AND TIME: 10/26/2023 2:53 PM HISTORY: Screening. Reduction mammoplasty in 2006. Maternal grandmother had breast carcinoma. COMPARISON: 04/23/22, 04/22/21, 04/17/20 TECHNIQUE: Bilateral digital breast tomosynthesis was performed in the CC and MLO projections. Computer aided detection with [employer] 3D 3.1 was employed. TISSUE DENSITY: b. There are scattered areas of fibroglandular density. FINDINGS: Reduction mammoplasty sequelae are again noted. No suspicious masses, grouped microcalcifications, or developing architectural distortion are seen. The skin and vascularity are unremarkable. IMPRESSION: Stable mammographic appearance of the breasts. No evidence of malignancy is seen. A negative mammogram in the presence of a clinically suspicious palpable abnormality does not preclude the possibility of malignancy or alter the indications for biopsy. BI-RADS: Category 2: Benign RECOMMENDATION(S): 1: Routine screening mammogram BILATERAL in 1 year. Dictating Physician: LISA ELIAS MD Electronically Signed by: LISA ELIAS MD Dic Date/Time: 10/27/23 1124 Sign date/Time: 10/27/23 1125 Procedure Note Lisa Elias MD - 12/22/2023 [facility] Diagnostic Imaging Department [address] [place] [id number] Patient: OSIELLAUREN /Age/Sex: 1975 - 47 - F Unit#: [id number] Location/Status: SPDIMAM/REG CLI Mnemonic/Ordering Site: DIGND/[facility] Ordering Physician: LEO CHURCHILL MD [facility] Screening Digital - 10/26/23 - [id number] Report Status:Signed EXAM: [facility] Screening Digital EXAM DATE AND TIME: 10/26/2023 2:53 PM HISTORY: Screening. Reduction mammoplasty in 2006. Maternal grandmotherhad breast carcinoma. COMPARISON: 04/23/22, 04/22/21, 04/17/20 TECHNIQUE: Bilateral digital breast tomosynthesis was performed in the CCand MLO projections. Computer aided detection with [employer] 3D 3.1was employed. TISSUE DENSITY: b. There [...] Most Recently Relevant to Health Maintenance Insurance [facility] [employer] PL[employer] Care Teams Administrative Director Relationship Specialty Start Date End Date Leo Churchill MD [address] [place] [address] PCP - General Internal Medicine 02/12/17
--- OUTSIDE RECORDS SUMMARY | 2024-09-29 14:43 | XMS_ITS | Clinical Summary ---
Author Organization [employer] Address [address] [place] [address] Care Team Providers Care Pipeman Name Role Phone Unavailable Primary Care Provider [...] 1975 FIT 1975 FOBT 1975 Sigmoidoscopy 1975 Disability Screening 1975 Alcohol/Substance Use Screening 1987 Tobacco Screening 1987 Family Planning (PISQ) 10/28/1990 Hepatitis B Vaccines (1 of 3 - 19+ 3-dose series) 10/28/1994 11/12/2005, 06/06/2000, 12/04/1997, Additional history exists Pap Smear 10/28/1996 Cervical Cancer Screening 10/28/2005 HPV/Cotest 10/28/2005 Mammogram 2015 DTaP/Tdap/Td Vaccines (2 - Td or Tdap) 03/11/2019 03/11/2009, 11/30/1996 COVID-19 Vaccine ( - season) 2023 Influenza Vaccine (#1) 2024 3, 12/05/2010, 12/09/2009 Zoster Vaccines (1 of [...] Years) and At-Risk Patients (6 to 49) Years Aged Out No longer eligible based on patient's age to complete this topic RSV under 20 months Aged Out No longe r eligible based on patient's age to complete this topic Rotavirus Vaccines Aged Out No longer eligible based on patient's age to complete this topic
== END 2024-09-29 14:57 | disposition home or self-care (01) ==
LOC: HO.HMCC 14:40
PROVIDERS: PCP Internal Medicine; Visit Provider Internal Medicine
DX: K21.9 Gastro-esophageal reflux disease without esophagitis (principal); E66.01 Morbid (severe) obesity due to excess calories; Z98.84 Bariatric surgery status; Z68.39 Body mass index [BMI] 39.0-39.9, adult

== ENCOUNTER 2024-10-12 11:23 | Outpatient (AMB) | payer OTHER, SELFPAY ==
[2024-10-12 11:25] VITALS: BP 112/80; PULSE 67; TEMP 36.6; O2SAT 100; BMI 39.9
--- NOTE | 2024-10-12 11:25 | AM.OFFWIN_ITS ---
Intake Vital Signs 10/12/24 11:25 Height 5 ft Weight 204 lb 8 oz BMI 39.9 BP 112/80 Blood Pressure Location Rt brachial Position Sitting Pulse 67 Pulse Source Pulse Oximeter Temp 97.9 F Temp Source Oral Pulse Oximetry (%) 100 Oxygen Delivery Method Room Air Intake Visit Reasons: EP WC- moved combative pt, injured? 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 Denies bowel or bladder symptoms. PFSH Medical History Lumbar radiculitis Migraine headache B12 deficiency Iron deficiency Vitamin D deficiency Obesity Surgical History Status post breast reduction History of gastric bypass History of tubal ligation History of tonsillectomy Family History Father No problems noted. Mother HTN (hypertension) Arthritis Prediabetes Substance use disorder Maternal Grandmother Heart problem Lymphoma Arthritis Unknown family medical history Breast cancer Paternal Grandmother Diabetes mellitus Heart problem Unknown family medical history Paternal Grandfather Diabetes mellitus Heart problem Maternal Grandfather Unknown family medical history Sister No problems noted. Sister No problems noted. Daughter No problems noted. Brother No problems noted. Brother No problems noted. Brother No problems noted. Brother No problems noted. Social History Housing: House Alcohol intake: never Patient Tobacco Use Status: Never used Tobacco e-Cigarette/Vaping Use: Never Used Patient : No service: No Current occupational status: employed Cognitive needs: No Hearing needs: No Vision needs: Yes Female Reproductive History Menstrual Age of Menarche: 14 Date of last menstrual period: 09/16/24 Review of Systems Const All systems reviewed & are unremarkable except as noted in HPI and below Physical Exam Vital Signs: Last Vital Signs Temp 97.9 F 10/12/24 11:25 Pulse 67 10/12/24 11:25 BP 112/80 10/12/24 11:25 Pulse Ox 100 10/12/24 11:25 Oxygen Delivery Method Room Air 10/12/24 11:25 BMI result Body Mass Index 39.9 Const General: no acute distress; No comfortable Nutritional Appearance: obese Orientation/consciousness: patient oriented x3 Back/Spine/Pelvis Back: back tenderness Thoracic/Lumbar Spine: pain with thoraco-lumbar ROM, thoraco-lumbar spasm and lumbar spinal tenderness Neuro General: patient oriented x3, gait normal and moves all extremities Psych Speech and movement: Normal speech and movement present Assessment & Plan Assessment & Plan (1) Lumbar pain: Code(s): M54.50 - Low back pain, unspecified Plan: Ordered Acetaminophen for pain relief Ordered Flexeril Advised the use of Lidocaine patches, Heat/Ice Rest Back Medications: New acetaminophen 1,000 mg (2 x 500 mg) PO Q6H PRN 30 caps 0RF pain M54.50 - Low back pain, unspecified cyclobenzaprine 10 mg PO BEDTIME 14 tabs 0RF M54.50 - Low back pain, unspecified Coding Level of Care Code Est Pt Level 4 (98842) Diagnoses Lumbar pain M54.50 Time Spent (min) 20
--- OUTSIDE RECORDS SUMMARY | 2024-10-12 12:04 | XMS_ITS | Clinical Summary ---
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
--- OUTSIDE RECORDS SUMMARY | 2024-10-12 12:04 | XMS_ITS | Clinical Summary ---
Author Organization [facility] Address [address] [place] [address] Phone Care Team Providers Care Fish Bailer Name Role Phone Leo Churchill MD Primary Care Provider [phone] Allergies Active Allergy Reactions Criticality Noted Date [...] 05/03/2024 7:08 AM EST Plan of Treatment Upcoming Encounters Date Type Department Care Team (Late st Contact Info) Description 10/16/2024 1:00 PM EDT Office Visit [facility] & [facility] [place] [address] [place] [phone] Kelvin Nguyen DO [address] [place] [address] Health Maintenance Due Date Last Done Comments [...] Maintenance Results * COLONOSCOPY Anesthesia - MAC; SP ENDOSCOPY (05/03/2024 7:56 AM EST) Anatomical Region Laterality Modality Endoscopy 05/03/2024 7:44 AM EST Impressions 05/03/2024 7:58 AM EST - The entire examined colon is normal on direct and retroflexion views. - No specimens collected. Recommendation: - Discharge patient to home. - Repeat colonoscopy in 10 years for screening purposes. Narrative 05/03/2024 7:58 AM EST [facility] GI Patient Name: Lauren Cartagena Procedure Date: 05/03/2024 7:44 AM Date of : 1975 Age: 48 Gender: Female Note Status: Finalized Attending MD: Kilo Lua MD, Procedure Date No Time: 05/03/2024 Procedure: Colonoscopy Indications: Screening for colorectal malignant neoplasm Providers: iKlo Lua MD Referring MD: Kilo Lua MD [...] verified by the physician, the nurse, the swing driver and the time study technician in the pre-procedure area in the [...] malignant neoplasm of colon CPT copyright 2020 [employer]. All rights reserved. The codes documented in this report are preliminary and upon forest pathology associate professor review may be revised to meet current compliance requirements. Kilo Lua MD 05/03/2024 7:58:45 AM This report has been signed electronically.Kilo Lua MD Number of Addenda: 0 Note Initiated On: 05/03/2024 7:44 AM Scope Withdrawal Time: 0 hours 6 minutes 57 seconds Scope In: 7:49:27 AM Scope Out: 7:58:29 AM Endoscopy Department at [facility] - [address] [place] [phone] Procedure Note Kilo Lua MD - 05/03/2024 [facility] GI Patient Name: Lauren Cartagena Procedure [...] the physician, the nurse, theanesthetist and the time study technician in the pre-procedure area in the [...] for malignantneoplasm of colon CPT copyright 2020 [employer]. All rights reserved. The codes documented in this report are preliminary and upon forest pathology associate professor reviewmay be revised to meet current compliance requirements. Kilo Lua MD 05/03/2024 7:58:45 AM This report has been signed electronically.Kilo Lua MD Number of Addenda: 0 Note Initiated On: 05/03/2024 7:44 AM Scope Withdrawal Time: 0 hours 6 minutes 57 seconds Scope In: 7:49:27 AM Scope Out: 7:58:29 AM Endoscopy Department at [facility] - [address] [place] [phone] IMPRESSION: - The entire examined colon is normal on direct and retroflexion views. - No specimens collected. Recommendation: - Discharge patient to home. - Repeat colonoscopy in 10 years for screening purposes. us Kilo Lua MD GI~PROCEDURE ORDERABLES Fin al Result * [facility] SCREENING DIGITAL (10/27/2023 11:25 AM EDT) Anatomical Region Laterality Modality Mammography 10/26/2023 2:34 PM EDT Narrative 10/27/2023 11:25 AM EDT [facility] Diagnostic Imaging Department [address] [place] [id number] Patient: LAUREN CARTAGENA /Age/Sex: 1975 - 47 - F Unit#: [id number] [facility] Mnemonic/Ordering Site: [facility] Ordering Physician: LEO CHURCHILL MD [facility] Screening Digital - 10/26/23 - 1452 Report Status:Signed EXAM: [facility] Screening Digital EXAM DATE AND TIME: 10/26/2023 2:53 PM HISTORY: Screening. Reduction mammoplasty in 2006. Maternal grandmother had breast carcinoma. COMPARISON: 04/23/22, 04/22/21, 04/17/20 TECHNIQUE: Bilateral digital breast tomosynthesis was performed in the CC and MLO projections. Computer aided detection with [employer] 3D 3.1 was employed. TISSUE DENSITY: b. [...] Procedure Note Lisa Elias MD - 12/22/2023 [facility] Diagnostic Imaging Department [address] [place] [id number] Patient: OSIELLAURENMAREK LindoB./Age/Sex: 1975 - 47 - F Unit#: [id number] Location/Status: [facility] CLI Mnemonic/Ordering Site: [facility] Ordering Physician: LEO CHURCHILL MD [facility] Screening Digital - 10/26/23 - 1452 Report Status:Signed EXAM: [facility] Screening Digital EXAM DATE AND TIME: 10/26/2023 2:53 PM HISTORY: Screening. Reduction mammoplasty in 2006. Maternal grandmotherhad breast carcinoma. COMPARISON: 04/23/22, 04/22/21, 04/17/20 TECHNIQUE: Bilateral digital breast tomosynthesis was performed in the CCand MLO projections. Computer aided detection with [employer] 3D 3.1was employed. TISSUE DENSITY: b. There [...] Most Recently Relevant to Health Maintenance Insurance [employer] Care Teams Fish Bailer Relationship Specialty Start Date End Date Leo Churchill MD [address] [facility] [place] [phone] PCP - General Internal Medicine 02/12/17
--- OUTSIDE RECORDS SUMMARY | 2024-10-12 12:04 | XMS_ITS | Clinical Summary ---
Author Organization [facility] Address [address] [place] [address] Care Team Providers Care Principal Java Developer Name Role Phone Leo Ray MD Primary Care Provider Unavailabl e Allergies Active Allergy Reactions Severity Noted Date Comments Latex 11/19/2023 Medications No known medications Active Problems Problem Noted Date Pannus, abdominal 03/19/2017 Intertrigo 03/19/2017 Family History Medical History Relation Name Comments CA Breast Maternal Grandmother Cancer, Other Maternal Grandmother Hypertension Maternal Grandmother Asthma Mother Diabetes Mother Hypertension Mother ID Paternal Grandmother Relation Name Status Comments Maternal [...] HIGH RISK PATIENTS (#1) 10/28 Care Teams Principal Java Developer Relationship Specialty Start Date End Date Leo Ray MD PCP - General Internal Medicine 02/12/17
== END 2024-10-12 11:43 | disposition home or self-care (01) ==
PROVIDERS: PCP Internal Medicine; Visit Provider Nurse Practitioner Family
DX: M54.50 Low back pain, unspecified (principal)

== ENCOUNTER → 2024-10-12 11:23 | Outpatient (BNVA) | payer OTHER, SELFPAY | PROVIDERS: PCP Internal Medicine; Visit Provider Nurse Practitioner Family | DX: M54.50 Low back pain, unspecified (principal) | CPT/HCPCS: 99212 ==

== ENCOUNTER 2024-12-08 10:24 | Outpatient (AMB) | payer OTHER, SELFPAY ==
[2024-12-08 10:25] VITALS: BP 102/70; PULSE 65; RESP 15; TEMP 36.8; O2SAT 99; BMI 38.5
--- NOTE | 2024-12-08 10:25 | A.OFFPC_ITS ---
Vital Signs 12/08/24 10:25 Height 5 ft Weight 197 lb BMI 38.5 BP 102/70 Blood Pressure Location Rt brachial Position Sitting Respiration 15 Pulse 65 Pulse Source Pulse Oximeter Temp 98.2 F Temp Source Oral Pulse Oximetry (%) 99 Oxygen Delivery Method Room Air Intake Visit Reasons: 2m follow up Allergies latex (LATEX) Allergy (Unknown, Verified 10/12/24 11:33) skin breakdown Medication List - Last Reconciled 12/08/24 by Leo Ray MD acetaminophen 1,000 mg (2 x 500 mg) PO Q6H PRN ascorbic acid (vitamin C) mg PO cholecalciferol (vitamin D3) 25 mcg PO DAILY niacin 250 mg PO BEDTIME omega-3 fatty acids 500 mg PO DAILY vitamin B complex 1 tab PO DAILY Zepbound (tirzepatide (weight loss)) 5 mg (0.5 mL) subcut QWEEK 90 days NS zinc glycinate 20 mg PO DAILY Tobacco use date assessed: 12/08/24 Dental Screening Dental Screen Date: 12/08/24 Did you have a dental visit in the last 12 months?: No Did you have a dental problem in the last 6 months where you did not have access to dental care?: No Was dental information given to patient?: Patient has dentist HPI 2m follow up HPI Details History of Present Illness The patient is a 49 year old female presenting with weight management consultation and future surgical considerations. Weight Management: - Patient previously weighed 204 pounds on October 12. - Current weight is 197 pounds, indicati ng a gradual reduction. - Patient reported feeling better, with no knee pain previously experienced. - Patient mentioned constipation intermi ttently managed by adjusting iron supplementation. - Patient has been using Zepbound 5 mg f or weight management. - Reports consulting a surgeon for poten tial surgical intervention after reaching 185 pounds to remove excess skin on arms. Problem List - Obesity - Constipation Plan - Continue administration of Zepbound 5 mg to aid in ongoing weight reduction, with the goal of reaching a target of 185 pounds. - Discussed the future possibility of ruiz rgical intervention for removal of excess skin, contingent upon reaching a stable weight close to 185 pounds. - Plan to reassess weight management and Zepbound use in subsequent consultations. - Address constipation by adjusting iron supplements as needed to prevent side effects. - Schedule laboratory testing to monitor thyroid function and pancreatic enzyme levels during the next visit. - Plan for endoscopy already scheduled i february to monitor gastrointestinal health. Follow-up 2 months Review of Systems - General: No fever no chills - Neurological: No headaches no dizziness - Ear nose throat: No sore throat no hearing difficulty no ear pain - Cardiovascular: No syncope, no chest pain, no palpitations - Gastrointestinal: No nausea vomiting or diarrhea - Endocrine: No polyuria polydipsia no heat intolerance - Genitourinary: No dysuria , no blood in urine Physical Exam - General: No acute distress - HEENT: No acute findings - Neck: Supple - Respiratory system: Able to talk in f ull sentences, no audible wheeze - Cardiovascular: S1-S2 regular in rate and rhythm - Gastrointestinal: No pain - Extremities: No new findings - LINUX PROGRAMMER: Alert awake oriented x3 motor in tact - Skin: Normal turgor PFSH Medical History Lumbar radiculitis Migraine headache B12 deficiency Iron deficiency Vitamin D deficiency Obesity Surgical History Status post breast reduction History of gastric bypass History of tubal ligation History of tonsillectomy Family History Father No problems noted. Mother HTN (hypertension) Arthritis Prediabetes Substance use disorder Maternal Grandmother Heart problem Lymphoma Arthritis Unknown family medical history Breast cancer Paternal Grandmother Diabetes mellitus Heart problem Unknown family medical history Paternal Grandfather Diabetes mellitus Heart problem Maternal Grandfather Unknown family medical history Sister No problems noted. Sister No problems noted. Daughter No problems noted. Brother No problems noted. Brother No problems noted. Brother No problems noted. Brother No problems noted. Social History Housing: House Alcohol intake: never Patient Tobacco Use Status: Never used Tobacco e-Cigarette/Vaping Use: Never Used service: No Current occupational status: employed Cognitive needs: No Hearing needs: No Vision needs: Yes Female Reproductive History Menstrual Age of Menarche: 14 Questionnaire Thrive Questionnaire Date Thrive assessed: 05/24/24 I am a: Patient What is your living situation today?: I choose not to answer this question Within the past 12 months, did the food you bought not last and you didn't have the money to get more?: I choose not to answer this question Within the past 12 months, did you worry whether your food would run out before you got money to buy more?: I choose not to answer this question Do you have trouble paying for medicines?: I choose not to answer this question Do you have trouble getting transportation to medical appointments?: I choose not to answer this question Do you have trouble paying your heating and electricity bill?: I choose not to answer this question Do you have trouble taking care of your child, family member or friend?: I choose not to answer this question Do you have trouble with day-to-day activities such as bathing, preparing meals, shopping, managing finances, etc.?: I choose not to answer this question Are you currently unemployed and looking for a job?: No Are you interested in more education?: No Please select the resources that you would like help with: None Currently or been in a relationship where the following occur: No concerns reported THRIVE Score: 0 MUSHTAQ-7 AMB Questionnaire MUSHTAQ-7 Date MUSHTAQ - 7 assessed: 05/24/24 Source: Developed by Drs. Fahad Beaulieu, Tawanna Talavera, Armen Javier and colleagues, with an educational klarissa from [employer]. Physical exam (Primary Care) Vital Signs: Last Vital Signs Temp 98.2 F 12/08/24 10:25 Pulse 65 12/08/24 10:25 Resp 15 12/08/24 10:25 BP 102/70 12/08/24 10:25 Pulse Ox 99 12/08/24 10:25 Oxygen Delivery Method Room Air 12/08/24 10:25 BMI result Body Mass Index 38.5 Tobacco/Smoking Status: Tobacco use Status Tobacco use date assessed 12/08/24 12/08/24 10:35 Patient Tobacco Use Status Never used Tobacco 12/08/24 10:26 e-Cigarette/Vaping Use Never Used 12/08/24 10:26 Thrive Assessment: Date of Thrive Assessment Date Thrive assessed 05/24/24 12/08/24 10:26 Currently or been in a relationship where the following occur: No concerns reported Coding Level of Care Code Est Pt Level 3 (64033) Diagnoses Class 2 obesity due to excess calories without serious comorbidity with body mass index (BMI) of 38.0 to 38.9 in adult E66.812; E66.09; Z68.38 Obesity classification: adult class 2 (BMI 35 - 39.9) Serious obesity comorbidity presence: without serious comorbidity Body mass index: BMI 38.0-38.9 Vitamin D deficiency E55.9 Chronic GERD K21.9 Assessment & Plan Assessment & Plan (1) Obesity due to excess calories: Code(s): E66.09 - Other obesity due to excess calories Category: Medical Qualifiers: Obesity classification: adult class 2 (BMI 35 - 39.9) Serious obesity comorbidity presence: without serious comorbidity Body mass index: BMI 38.0- 38.9 Qualified Code(s): E66.812 - Obesity, class 2; E66.09 - Other obesity due to excess calories; Z68.38 - Body mass index [BMI] 38.0-38.9, adult (2) Vitamin D deficiency: Code(s): E55.9 - Vitamin D deficiency, unspecified Category: Medical (3) Chronic GERD: Code(s): K21.9 - Gastro-esophageal reflux disease without esophagitis Category: Medical Plan History of Present Illness The patient is a 49 year old female presenting with weight management consultation and future surgical considerations. Weight Management: - Patient previously weighed 204 pounds on October 12. - Current weight is 197 pounds, indicating a gradual reduction. - Patient reported feeling better, with no knee pain previously experienced. - Patient mentioned constipation intermittently managed by adjusting iron supplementation. - Patient has been using Zepbound 5 mg for weight management. - Reports consulting a surgeon for potential surgical intervention after reaching 185 pounds to remove excess skin on arms. Problem List - Obesity - Constipation Plan - Continue administration of Zepbound 5 mg to aid in ongoing weight reduction, with the goal of reaching a target of 185 pounds. - Discussed the future possibility of surgical intervention for removal of excess skin, contingent upon reaching a stable weight close to 185 pounds. - Plan to reassess weight management and Zepbound use in subsequent consultations. - Address constipation by adjusting iron supplements as needed to prevent side effects. - Schedule laboratory testing to monitor thyroid function and pancreatic enzyme levels during the next visit. - Plan for endoscopy already scheduled in February to monitor gastrointestinal health. Follow-up 2 months Orders: Orders Amylase Today D50.9 - Iron deficiency anemia, unspecified, E55.9 - Vitamin D deficiency, unspecified, E66.01 - Morbid (severe) obesity due to excess calories, K21.9 - Gastro-esophageal reflux disease without esophagitis Complete Blood Count Auto Diff Today D50.9 - Iron deficiency anemia, unspecified, E55.9 - Vitamin D deficiency, unspecified, E66.01 - Morbid (severe) obesity due to excess calories, K21.9 - Gastro-esophageal reflux disease without esophagitis Lipase Today D50.9 - Iron deficiency anemia, unspecified, E55.9 - Vitamin D deficiency, unspecified, E66.01 - Morbid (severe) obesity due to excess calories, K21.9 - Gastro-esophageal reflux disease without esophagitis Comprehensive Met. Panel Today D50.9 - Iron deficiency anemia, unspecified, E55.9 - Vitamin D deficiency, unspecified, E66.01 - Morbid (severe) obesity due to excess calories, K21.9 - Gastro-esophageal reflux disease without esophagitis LDL Cholesterol Direct Today D50.9 - Iron deficiency anemia, unspecified, E55.9 - Vitamin D deficiency, unspecified, E66.01 - Morbid (severe) obesity due to excess calories, K21.9 - Gastro-esophageal reflux disease without esophagitis Vitamin D 25-OH (D2 and D3) Today D50.9 - Iron deficiency anemia, unspecified, E55.9 - Vitamin D deficiency, unspecified, E66.01 - Morbid (severe) obesity due to excess calories, K21.9 - Gastro-esophageal reflux disease without esophagitis Ferritin Today D50.9 - Iron deficiency anemia, unspecified, E55.9 - Vitamin D deficiency, unspecified, E66.01 - Morbid (severe) obesity due to excess calories, K21.9 - Gastro-esophageal reflux disease without esophagitis
--- OUTSIDE RECORDS SUMMARY | 2024-12-08 11:18 | XMS_ITS | Clinical Summary ---
Author Organization [employer] Address [address] [facility] [address] [place] [address] Care Team Providers Care Suspect Artist Name Role Phone Unavailable Primary Care Provider [...] 03/11/2009, 11/30/1996 COVID-19 Vaccine ( - season) 2024 Influenza Vaccine (#1) 2024 3, 12/05/2010, 12/09/2009 [...]
--- OUTSIDE RECORDS SUMMARY | 2024-12-08 11:18 | XMS_ITS | Clinical Summary ---
Author Organization [facility] Address [address] [place] [address] Phone Care Team Providers Care Solid [employer] Truck Driver Name Role Phone Leo Churchill MD Primary Care Provider [phone] Allergies Active Allergy Reactions Criticality Noted Date [...] by the office 2 tablet 5 Active Zepbound 5 mg/0.5 mL injection INJECT 5 MG (0.5 ML) SUBCUTANEOUSLY EVERY WEEK FOR 4 WEEKS 5 Active Ventolin HFA 90 mcg/actuation inhaler INHALE 1 PUFF BY MOUTH 4 TIMES A DAY NEEDED FOR SHORTNESS OF BREATH OR WHEEZING 4 Active Active Problems Problem Noted Date Diagnosed Date Skin laxity 10/26/2024 Obesity 10/26/2024 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 Encounters Date Type Department Care Team Description 10/16/2024 1:00 PM EDT Office Visit Plastic & Reconstructive Surgery [facility] [address] [place] [address] Kelvin Nguyen DO Skin laxity (Primary Dx); Obesity, unspecified class, unspecified obesity type, unspecified whether serious comorbidity present; Lipodystrophy from Last 3 Months Surgical History Surgery [...] Safety Answer Date Record ed Physical Abuse Unrecognized value 05/03/2024 Verbal Abuse Unrecognized value 05/03/2024 Comments No Sex and Gender Information [...] EST Inhaled Oxygen Concentration - - Weight 91.6 kg (202 lb) 10/16/2024 1:05 PM EDT Height 153 cm (5' 0.25 ) 10/16/2024 1:05 PM EDT Body Mass Index 39.12 10/16/2024 1:05 PM EDT Plan of Treatment Health Maintenance Due Date Last Done Comments Cervical Cancer Screening: Pap Smear 10/28/1996 DTaP,Tdap,and Td Vaccines (3 - Td or Tdap) 03/11/2019 03/11/2009, 11/30/1996 Cholesterol Screening (Lipid Panel) 02/08/2022 HIV Screening 02/08/2022 Hepatitis C Screening 02/08/2022 Social Influencers of Health Screening 02/08/2022 Depression Screening 03/08/2024 COVID-19 Vaccine ( season) 2024 02/26/2022, 02/19/2021, 06/28/2020, Additional history exists Influenza Vaccine (#1) 2024 , 12/05/2021, 11/29/2020, Additional history exists Breast Cancer Screening 10/26/2025 10/27/19 24, 04/23/2022, 04/23/2021, Additional history exists Colorectal Cancer Screening: Colonoscopy 05/03/2034 05/03/2024 RSV Immunization Adult Patients (1 - 1-dose 75+ series) 10/28/2050 MMR Vaccines Completed 09/01/1989, 02/10/1977 Hepatitis B [...] screening purposes. Narrative 05/03/2024 7:58 AM EST [facility] GI Patient Name: Lauren Cartagena Procedure Date: 05/03/2024 7:44 AM Date of : 1975 Age: 48 Gender: Female Note Status: Finalized Attending MD: Klio Lua MD, Procedure Date No Time: 05/03/2024 [...] verified by the physician, the nurse, the horse trekking guide and the geotechnical engineering technician in the pre-procedure area in the [...] malignant neoplasm of colon CPT copyright 2020 [employer]. All rights reserved. The codes documented in this report are preliminary and upon invoice coder review may be revised to meet current compliance requirements. Kilo Lua MD 05/03/2024 7:58:45 AM This report has been signed electronically.Kilo Lua MD Number of Addenda: 0 Note Initiated On: 05/03/2024 7:44 AM Scope Withdrawal Time: 0 hours 6 minutes 57 seconds Scope In: 7:49:27 AM Scope Out: 7:58:29 AM Endoscopy Department at [facility] - [address] [place] [phone] Procedure Note Kilo Lua MD - 05/03/2024 [facility] GI Patient Name: Lauren Cartagena Procedure [...] the physician, the nurse, theanesthetist and the geotechnical engineering technician in the pre-procedure area in the [...] for malignantneoplasm of colon CPT copyright 2020 [employer]. All rights reserved. The codes documented in this report are preliminary and upon invoice coder reviewmay be revised to meet current compliance requirements. Kilo Lua MD 05/03/2024 7:58:45 AM This report has been signed electronically.Kiol Lua MD Number of Addenda: 0 Note Initiated On: 05/03/2024 7:44 AM Scope Withdrawal Time: 0 hours 6 minutes 57 seconds Scope In: 7:49:27 AM Scope Out: 7:58:29 AM Endoscopy Department at [facility] - [address] [place] [phone] IMPRESSION: - The entire examined colon is normal on direct and retroflexion views. - No specimens collected. Recommendation: - Discharge patient to home. - Repeat colonoscopy in 10 years for screening purposes. us Kilo Lua MD GI~PROCEDURE ORDERABLES Fin al Result * [facility] SCREENING DIGITAL (10/27/2023 11:25 AM EDT) Anatomical Region Laterality Modality Mammography 10/26/2023 2:34 PM EDT Narrative 10/27/2023 11:25 AM EDT [facility] Diagnostic Imaging Department [address] [place] [id number] Patient: LAUREN CARTAGENA /Age/Sex: 1975 - 47 - F Unit#: [id number] Location/Status: [facility] CLI Mnemonic/Ordering Site: [facility] Ordering Physician: LEO CHURCHILL MD [facility] Screening Digital - 10/26/23 - [id number] Report Status:Signed EXAM: [facility] Screening Digital EXAM DATE AND TIME: 10/26/2023 2:53 PM HISTORY: Screening. Reduction mammoplasty in 2006. Maternal grandmother had breast carcinoma. COMPARISON: 04/23/22, 04/22/21, 04/17/20 TECHNIQUE: Bilateral digital breast tomosynthesis was performed in the CC and MLO projections. Computer aided detection with [employer] 3D 3.1 was employed. TISSUE DENSITY: b. [...] by: LISA ELIAS MD Dic Date/Time: 10/27/23 112 Sign date/Time: 10/27/23 112 Procedure Note Lisa Elias MD - 12/22/2023 [facility] Diagnostic Imaging Department [address] [place] [address] Patient: LAUREN CARTAGENA D.O.B./Age/Sex: 1975 - 47 - F Unit#: [id number] Location/Status: [facility]/REG CLI Mnemonic/Ordering Site: [facility] Ordering Physician: LEO CHURCHILL MD [facility] Screening Digital - 10/26/23 - [id number] Report Status:Signed EXAM: [facility] Screening Digital EXAM DATE AND TIME: 10/26/2023 2:53 PM HISTORY: Screening. Reduction mammoplasty in 2006. Maternal grandmotherhad breast carcinoma. COMPARISON: 04/23/22, 04/22/21, 04/17/20 TECHNIQUE: Bilateral digital breast tomosynthesis was performed in the CCand MLO projections. Computer aided detection with [employer] 3D 3.1was employed. TISSUE DENSITY: b. There [...] Most Recently Relevant to Health Maintenance Insurance [facility] [facility] Care Teams Solid Waste Truck Driver Relationship Specialty Start Date End Date Leo Churchill MD [address] [facility] [place] [phone] PCP - General Internal Medicine 02/12/17
--- OUTSIDE RECORDS SUMMARY | 2024-12-08 11:18 | XMS_ITS | Encounter Summary ---
Author Organization [facility] Address [address] [place] [id number] Care Team Providers Care Lamp Shade Joiner Name Role Phone Unavailable Primary Care Provider Unavailabl e Encounter Details Date Type Department Care Team (Latest Contact Info) Description 01/11/2019 Abstract [facility] CONVERSIONS Dental, Provider, DDS Social History Tobacco [...]
== END 2024-12-08 10:42 | disposition home or self-care (01) ==
LOC: HO.HMCC 10:24
PROVIDERS: PCP Internal Medicine; Visit Provider Internal Medicine
DX: E66.812 Obesity, class 2 (principal); E66.09 Other obesity due to excess calories; Z68.38 Body mass index [BMI] 38.0-38.9, adult; E55.9 Vitamin D deficiency, unspecified; K21.9 Gastro-esophageal reflux disease without esophagitis

== ENCOUNTER → 2024-12-08 10:24 | Outpatient (BNVA) | payer OTHER, SELFPAY | PROVIDERS: PCP Internal Medicine; Visit Provider Internal Medicine | DX: E66.812 Obesity, class 2 (principal); E66.09 Other obesity due to excess calories; E55.9 Vitamin D deficiency, unspecified; K21.9 Gastro-esophageal reflux disease without esophagitis; Z68.38 Body mass index [BMI] 38.0-38.9, adult | CPT/HCPCS: 99212 ==

== ENCOUNTER 2025-02-14 10:35 | Outpatient (AMB) | payer OTHER, SELFPAY ==
--- NOTE | 2025-02-14 10:39 | A.OFFPC_ITS ---
Vital Signs 02/14/25 10:40 Height 5 ft Weight 185 lb BMI 36.1 BP 110/70 Blood Pressure Location Lt brachial Position Sitting Pulse 62 Pulse Source Pulse Oximeter Pulse Oximetry (%) 97 Intake Visit Reasons: 2 mo follow up Allergies latex (LATEX) Allergy (Unknown, Verified 02/14/25 10:40) skin breakdown Medication List - Last Reconciled 02/14/25 by Leo Ray MD acetaminophen 1,000 mg (2 x 500 mg) PO Q6H PRN ascorbic acid (vitamin C) mg PO cholecalciferol (vitamin D3) 25 mcg PO DAILY niacin 250 mg PO BEDTIME omega-3 fatty acids 500 mg PO DAILY vitamin B complex 1 tab PO DAILY Zepbound (tirzepatide (weight loss)) 5 mg (0.5 mL) subcut QWEEK 90 days NS zinc glycinate 20 mg PO DAILY Tobacco use date assessed: 12/08/24 Dental Screening Dental Screen Date: 12/08/24 HPI 2 mo follow up HPI Details History of Present Illness The patient is a 49 year old female presenting with a follow-up for weight management and medication refill. Weight Management: - The patient is currently on a weight l oss program and reports her weight is now 185 pounds, which is a positive trend. - She is administering Zepbound 5 mg inj ections without any issues and finds them effective. - Her exercise regimen includes Pilates, though she admits to not doing much in the last five weeks to avoid gaining muscle. - She is also trying to increase her pro tein intake. - She is considering brachioplasty after weight loss and has already consulted with a surgeon, Dr. Alvarenga. - The surgeon advised her to maintain he r weight at 185 for a period before proceeding. - She experiences difficulty keeping her arms raised for extended periods, such as when doing her hair. - the excess skin has started to cause r ashes anxilla and chest area due to friction now its medically necessary for her to have the surgery Intermittent Rash: - The patient reports having an intermit tent rash that is occasionally pruritic. - She has been using Clobetasol cream, a steroid cream, which she finds effective. Preventative Care: - The patient is inquiring about the shahid ngles vaccine as she will be turning 50 soon. - She has a history of two episodes of s evere chickenpox. - She reports that her grandmother and t wo cousins had shingles. - The patient has already received her i nfluenza vaccine. - Her last comprehensive lab panel was i n September and she is due for new labs. Problem List - Weight management follow-up - Intermittent pruritic rash - Preventative care: Shingles vaccinatio n - Preventative care: Influenza vaccinati on - excess arm skin bilateral Plan - Continue Zepbound 5 mg as it is effect adolph for weight loss; a refill will be sent. - A refill for Clobetasol cream for her intermittent rash will be sent to the pharmacy. - The patient was advised to obtain the shingles vaccine from a pharmacy, pending insurance coverage, upon turning 50. - Ordered blood work to be completed bef ore her physical exam in May. - The patient was instructed to provide the surgeon's (Dr. Alvarenga) information via the patient portal so notes can be sent to his office for submission to insurance. - A follow-up visit is scheduled for May, which will include a physical exam. Review of Systems - General: No fever no chills - Neurological: No headaches no dizziness - Ear nose throat: No sore throat no hearing difficulty no ear pain - Cardiovascular: No syncope, no chest pain, no palpitations - Gastrointestinal: No nausea vomiting or diarrhea - Endocrine: No polyuria polydipsia no heat intolerance - Genitourinary: No dysuria , no blood in urine Physical Exam General: No acute distress HEENT: No acute findings Neck: Supple Respiratory system: Able to talk in full sentences, no audible wheeze Cardiovascular: S1-S2 regular in rate and rhythm, blood pressure 60/80 Gastrointestinal: No pain Extremities: excessive skin upper arm both side, causing lifting of arms above head REGISTERED DENTAL ASSISTANT: Alert awake oriented x3 motor intact Skin: Normal turgor, occasional rash causing itchiness once in a while [facility] Medical History Lumbar radiculitis Migraine headache B12 deficiency Iron deficiency Vitamin D deficiency Obesity Surgical History Status post breast reduction History of gastric bypass History of tubal ligation History of tonsillectomy Family History Father No problems noted. Mother HTN (hypertension) Arthritis Prediabetes Substance use disorder Maternal Grandmother Heart problem Lymphoma Arthritis Unknown family medical history Breast cancer Paternal Grandmother Diabetes mellitus Heart problem Unknown family medical history Paternal Grandfather Diabetes mellitus Heart problem Maternal Grandfather Unknown family medical history Sister No problems noted. Sister No problems noted. Daughter No problems noted. Brother No problems noted. Brother No problems noted. Brother No problems noted. Brother No problems noted. Social History Housing: House Alcohol intake: never Patient Tobacco Use Status: Never used Tobacco e-Cigarette/Vaping Use: Never Used service: No Current occupational status: employed Cognitive needs: No Hearing needs: No Vision needs: Yes Female Reproductive History Menstrual Age of Menarche: 14 Questionnaire Thrive Questionnaire Date Thrive assessed: 05/24/24 I am a: Patient What is your living situation today?: I choose not to answer this question Within the past 12 months, did the food you bought not last and you didn't have the money to get more?: I choose not to answer this question Within the past 12 months, did you worry whether your food would run out before you got money to buy more?: I choose not to answer this question Do you have trouble paying for medicines?: I choose not to answer this question Do you have trouble getting transportation to medical appointments?: I choose not to answer this question Do you have trouble paying your heating and electricity bill?: I choose not to answer this question Do you have trouble taking care of your child, family member or friend?: I choose not to answer this question Do you have trouble with day-to-day activities such as bathing, preparing meals, shopping, managing finances, etc.?: I choose not to answer this question Are you currently unemployed and looking for a job?: No Are you interested in more education?: No Please select the resources that you would like help with: None Currently or been in a relationship where the following occur: No concerns reported THRIVE Score: 0 MUSHTAQ-7 AMB Questionnaire MUSHTAQ-7 Date MUSHTAQ - 7 assessed: 05/24/24 Source: Developed by Drs. Fahad Beaulieu, Tawanna Talavera, Armen Javier and colleagues, with an educational klarissa from [employer]. Physical exam (Primary Care) Vital Signs: Last Vital Signs Pulse 62 02/14/25 10:40 BP 110/70 02/14/25 10:40 Pulse Ox 97 02/14/25 10:40 BMI result Body Mass Index 36.1 Tobacco/Smoking Status: Tobacco use Status Tobacco use date assessed 12/08/24 02/14/25 10:40 Patient Tobacco Use Status Never used Tobacco 02/14/25 10:40 e-Cigarette/Vaping Use Never Used 02/14/25 10:40 Thrive Assessment: Date of Thrive Assessment Date Thrive assessed 05/24/24 02/14/25 10:40 Currently or been in a relationship where the following occur: No concerns reported Coding Level of Care Code Est Pt Level 4 (02460) Diagnoses Class 2 obesity due to excess calories without serious comorbidity with body mass index (BMI) of 38.0 to 38.9 in adult E66.812; E66.09; Z68.38 Obesity classification: adult class 2 (BMI 35 - 39.9) Serious obesity comorbidity presence: without serious comorbidity Body mass index: BMI 38.0-38.9 Pruritic rash L28.2 Excess skin of upper extremity L98.7 Assessment & Plan Assessment & Plan (1) Obesity due to excess calories: Code(s): E66.09 - Other obesity due to excess calories Category: Medical Qualifiers: Obesity classification: adult class 2 (BMI 35 - 39.9) Serious obesity comorbidity presence: without serious comorbidity Body mass index: BMI 38.0- 38.9 Qualified Code(s): E66.812 - Obesity, class 2; E66.09 - Other obesity due to excess calories; Z68.38 - Body mass index [BMI] 38.0-38.9, adult (2) Pruritic rash: Code(s): L28.2 - Other prurigo Category: Medical (3) Excess skin of upper extremity: Code(s): L98.7 - Excessive and redundant skin and subcutaneous tissue Category: Medical Plan Problem List - Weight management follow-up - Intermittent pruritic rash - Preventative care: Shingles vaccination - Preventative care: Influenza vaccination - excess arm skin bilateral Plan - Continue Zepbound 5 mg as it is effective for weight loss; a refill will be sent. - A refill for Clobetasol cream for her intermittent rash will be sent to the pharmacy. - The patient was advised to obtain the shingles vaccine from a pharmacy, pending insurance coverage, upon turning 50. - Ordered blood work to be completed before her physical exam in May. - The patient was instructed to provide the surgeon's (Dr. Alvarenga) information via the patient portal so notes can be sent to his office for submission to insurance. - A follow-up visit is scheduled for May, which will include a physical exam. Medications: New clobetasol 0.05% 1 appl topical BEDTIME 30 grams 0RF rash Refilled Zepbound (tirzepatide (weight loss)) for 4 weeks 5 mg (0.5 mL) subcut QWEEK 2 mL 0RF 90 days NS E66.01 - Morbid (severe) obesity due to excess calories, M54.50 - Low back pain, unspecified
[2025-02-14 10:40] VITALS: BP 110/70; PULSE 62; O2SAT 97; BMI 36.1
== END 2025-02-14 11:22 | disposition home or self-care (01) ==
LOC: HO.HMCC 10:36
PROVIDERS: PCP Internal Medicine; Visit Provider Internal Medicine
DX: E66.812 Obesity, class 2 (principal); E66.09 Other obesity due to excess calories; Z68.38 Body mass index [BMI] 38.0-38.9, adult; L28.2 Other prurigo; L98.7 Excessive and redundant skin and subcutaneous tissue

== ENCOUNTER → 2025-02-14 10:35 | Outpatient (BNVA) | payer OTHER, SELFPAY | PROVIDERS: PCP Internal Medicine; Visit Provider Internal Medicine | DX: L98.7 Excessive and redundant skin and subcutaneous tissue (principal); L28.2 Other prurigo; E66.812 Obesity, class 2; Z68.38 Body mass index [BMI] 38.0-38.9, adult; E66.09 Other obesity due to excess calories | CPT/HCPCS: 99212 ==